=== PATIENT | female | born 1950 | race Hispanic/Latino ===

== ENCOUNTER 2017-03-26 16:01 | Inpatient (IN) | payer MEDICARE, OTHER ==
[2016-04-03 16:50] VITALS: PULSE 92
[2017-03-27] MEDS: Insulin Reg-LOW-Coverage SC SCH ×4 (07:45→22:15)
[2017-03-27 08:20] LABS: INR 1.56 (0.93-1.08)
[2017-03-27 09:48] LABS: INR 1.67 (0.93-1.08); PARTIAL THROMBOPLASTIN TIME 28.4 Seconds (23.7-30.8)
[2017-03-27] MEDS ORDERED: diltiaZEM 240 mg/24 Hours CD Cap PO SCH ×2 (10:00→10:31)
[2017-03-27 10:50] LABS: HEMATOCRIT 32.3 % (36.0-48.0); MEAN CELL VOLUME 93.9 fL (80.0-105.0); MEAN CORPUSCULAR HEMOGLOBIN 30.2 pg (25.0-35.0); MEAN CORPUSCULAR HGB CONC 32.2 g/dl (31.0-37.0); MEAN PLATELET VOLUME 10.2 fl (7.0-11.0); RED CELL DISTRIBUTION WIDTH 17.8 % (11.5-14.5); WHITE BLOOD COUNT 6.1 10^3/ul (4.5-11.0)
[2017-03-27] MEDS: Potassium Chloride 20 mEq ER Tab PO SCH (10:53)
[2017-03-27] MEDS: diltiaZEM 180 mg/24 Hours CD Cap PO SCH (10:57)
[2017-03-27] MEDS ORDERED: Pantoprazole 40 mg EC Tab PO STA (11:06)
--- NOTE | 2017-03-27 11:54 | US ---
HISTORY: Leg pain and swelling. Evaluate for DVT PHYSICIAN(S): Alberto Elise MD. TECHNIQUE: Duplex sonography and color-flow Doppler with graded compression were used to evaluate the deep venous systems of both lower extremities. The exam is limited by body habitus and edema. The tibial veins are not well seen FINDINGS: The visualized deep venous systems of both lower extremities are sonographically normal and compressible. Normal wave forms and augmentation are seen. There is no sonographic evidence for deep venous thrombosis in the visualized segments of both lower extremities. IMPRESSION: No sonographic evidence for deep venous thrombosis in the visualized segments of both lower extremities. Limited study.
--- NOTE | 2017-03-27 12:41 | RAD ---
HISTORY: LEG SWELLING COMPARISON: 12/18/2015 FINDINGS: LUNGS: No active pulmonary disease. PLEURA: No significant pleural effusion identified, no pneumothorax apparent. CARDIOVASCULAR: Moderate cardiomegaly OSSEOUS STRUCTURES: Sternal wires VISUALIZED UPPER ABDOMEN: Normal. OTHER FINDINGS: None. IMPRESSION: No active disease.
--- NOTE | 2017-03-27 13:01 | HP ---
HISTORY OF PRESENT ILLNESS: This 67-year-old female was examined at her bedside. Her case was reviewed with herself in detail and patient was seen earlier today by Dr. Alberto Rose from cardiology and I have reviewed this case with her nurse, Erlinda Rodriguez, in detail as well. The patient presented to the [facility] ER complaining of mild shortness of breath in the setting of a history of aortic valve cardiac repair approximately 4 years ago with history of chronic atrial fibrillation for which she takes Cardizem and Coumadin as an outpatient. The patient also is a type 2 diabetic, who follows with endocrinology through the [facility] in [place], [place] where she also receives her primary care as well. The patient states that approximately 4 years ago, under the recommendation of Dr. Alberto Rose, she was sent for cardiac valve replacement and repair surgery at [facility] and has done well subsequently. She states that on review of her history, she was a former smoker, none since her surgery, a nondrinker, non- IV drug misuser whose family history is significant for atherosclerotic heart disease and phlebitis of the legs. ALLERGIES: She denies any allergies to medication. OUTPATIENT MEDICATIONS: She is unclear as to her outpatient medication, but purportedly takes Cardizem, Coumadin, sotalol, Pravachol, Lasix, potassium, Protonix, metformin, insulin, Lasix and Klonopin. REVIEW OF SYSTEMS: HEAD: There was no headache or seizure. EYES: No change in visual acuity. EARS: No hearing loss. THROAT: No swallowing difficulty. NECK: No stiffness. CARDIAC: She is status post valvular heart repair. Has a history of chronic hypertension. PULMONARY: No cough, no hemoptysis. GASTROINTESTINAL: Admits to GERD. GENITOURINARY: No dysuria. SKIN: Without rash. She has chronic phlebitis. VASCULAR: No claudication. PSYCHOLOGICAL: Anxiety. NEUROLOGIC: No knowledge of stroke. PHYSICAL EXAMINATION: VITAL SIGNS: On the campus monitor, she is in atrial fibrillation. Temperature 98, respirations 18, pulse 74, blood pressure 148/62 with a pulse ox of 98% room air. HEENT: Head is normocephalic, atraumatic. Eyes show no icterus. Ears are clear. Throat is not injected. NECK: Supple. HEART: Irregular S1, S2. LUNGS: Clear. ABDOMEN: Obese. EXTREMITIES: With chronic phlebitic changes. VASCULAR: Legs warm to touch. PSYCHOLOGIC: Alert. NEUROLOGIC: Intact. LABORATORY DATA: White count 6100, hemoglobin 10.4, hematocrit 32.3, MCV 93.9, platelets 285. PT/INR is subtherapeutic at 1.56. Digoxin level low at 0.6. IMPRESSION: A 67-year-old female, morbidly obese with a BMI of 41.8 and comorbidities of valvular heart disease, chronic atrial fibrillation, chronic hypertension, subtherapeutic PT/INR for chronic atrial fibrillation protection, type 2 diabetes mellitus, history of gastroesophageal reflux disease and normochromic normocytic anemia. PLAN: At present is to continue medications as ordered by Dr. Rose including sotalol 80 mg b.i.d., Cardizem-CD 180 p.o. daily, Coumadin 6 mg p.o. daily, regular low dose insulin coverage a.c. meals and at bedtime, Lasix 40 mg IV daily, potassium 20 mEq p.o. daily, Protonix 40 mg p.o. daily. She is ordered to have a 2D echocardiogram, a heart healthy diabetic diet. She will have a comprehensive metabolic panel, repeat troponin. I will order iron, TIBC, ferritin, B12 and folic acid levels and stool for occult blood. The patient has been advised upon her return to her PMD at the outpatient clinic that she attend to have followup with a GI for completeness sake and it is recommended to have a repeat endoscopy and colonoscopy for completeness sake. Once cleared by cardiology, she will be discharged to their care and hopefully will be compliant with the above. Greater than 60 minutes was spent in the care, coordination of care, review of care with this patient, nursing, co-consultants today. Prognosis remains stable at present. Of note, I did review her venous Doppler of the lower extremities and there is no evidence of deep venous thrombosis upon review with Dr. Alberto Elise from interventional radiology. Jazmín Velez MD cc: [id number] TT: 03/27/2017 13:00:35 carmelo GODOY
[2017-03-27 14:08] LABS: ALB/GLOB RATIO 0.9 (1.1-1.8); ALKALINE PHOSPHATASE 87 U/L (38-133); ALT/SGPT 26 U/L (7-56); AST/SGOT 33 U/L (15-39); BILIRUBIN,TOTAL 0.8 mg/dL (0.2-1.3); BLOOD UREA NITROGEN 19 mg/dL (7-21); CALCIUM 9.4 mg/dL (8.4-10.5); CARBON DIOXIDE 29 mmol/L (21-33); CHLORIDE 98 mmol/L (98-107); GFR AFRICAN-AMERICAN > 60; GLUCOSE,RANDOM 99 mg/dL (70-110); POTASSIUM 4.2 mmol/L (3.6-5.0); SODIUM 138 mmol/L (132-148); TOTAL PROTEIN 8.7 g/dL (5.8-8.3); TROPONIN I 0.03 ng/mL
[2017-03-27 14:31] LABS: IRON 44 ug/dL (45-180)
[2017-03-27 14:50] VITALS: BMI 41.7
[2017-03-27] MEDS ORDERED: Pneumococcal 23-Valent Vaccine IM ONE (14:51)
[2017-03-27 18:22] LABS: FOLATE 17.7 ng/mL
--- NOTE | 2017-03-27 20:23 | CP.PCM.PN ---
Subjective - Date & Time of Evaluation Date of Evaluation: 03/27/17 Time of Evaluation: 20:22 - Subjective Subjective: Patient was seen at bedside . Because patient was found to have a 2.1 second pause on monitor. Has no complaints.Denies sob, chest pain, nausea, palpitations, sweating. 67 year old white woman was admitted sob Has PMH of chronid atrial fibrillation, type II DM, ex smoker, obesity,GERD, normocytic normochromic anemia. Objective - Vital Signs/Intake and Output Vital Signs (last 24 hours): Temp Pulse Resp BP Pulse Ox 97.9 F 67 18 139/58 L 98 03/27/17 18:00 03/27/17 18:33 03/27/17 18:00 03/27/17 18:33 03/27/17 14:20 - Medications Medications: Current Medications Diltiazem HCl (Cardizem Cd) 180 mg PO DAILY [facility] Last Admin: 03/27/17 10:57 Dose: 180 mg Furosemide (Lasix) 40 mg IVP DAILY [facility] Last Admin: 03/27/17 10:53 Dose: 40 mg Insulin Human Regular (Humulin R Low) 0 units SC ACHS [facility] Last Admin: 03/27/17 19:01 Dose: Not Given Pantoprazole Sodium (Protonix Ec Tab) 40 mg PO 0630 [facility] Potassium Chloride (K-Dur 20 Meq Er Tab) 20 meq PO DAILY [facility] Last Admin: 03/27/17 10:53 Dose: 20 meq Sotalol HCl (Betapace) 80 mg PO BID [facility] Last Admin: 03/27/17 18:33 Dose: 80 mg Warfarin Sodium (Coumadin) 6 mg PO 1800 [facility] Last Admin: 03/27/17 18:38 Dose: 6 mg - Labs Labs: PT 16.9 Seconds (9.9-11.8) H 03/27/17 07:00 INR 1.56 (0.93-1.08) H 03/27/17 07:00 APTT 28.4 Seconds (23.7-30.8) 03/26/17 18:40 - Constitutional Appears: Well, No Acute Distress - Head Exam Head Exam: ATRAUMATIC, NORMAL INSPECTION, NORMOCEPHALIC - Eye Exam Eye Exam: Normal appearance - ENT Exam ENT Exam: Normal External Ear Exam - Neck Exam Neck Exam: Normal Inspection - Respiratory Exam Respiratory Exam: NORMAL BREATHING PATTERN - Cardiovascular Exam Cardiovascular Exam: absent: JVD - GI/Abdominal Exam GI & Abdominal Exam: absent: Distended - Rectal Exam Rectal Exam: Deferred - Extremities Exam Extremities Exam: Normal Inspection - Back Exam Back Exam: NORMAL INSPECTION - Neurological Exam Neurological Exam: Alert, Oriented x3 - Psychiatric Exam Psychiatric exam: Normal Affect, Normal Mood - Skin Skin Exam: Normal Color Assessment and Plan - Assessment and Plan (Free Text) Assessment: A/P:Sinus pause. On Sotalol, cardizem. Dyspnea. Atrial fibrillation. Obesity. DM II. GERD. Anemia. Observation. Hold Sotalol until reordered by .
--- NOTE | 2017-03-27 22:41 | CARD ---
APPROVED REPORT EKG Measurement Heart [id number] <Conclusion> Atrial fibrillation Rightward axis Left bundle branch block Abnormal ECG
[2017-03-28] MEDS: Pantoprazole 40 mg EC Tab PO SCH (05:53)
[2017-03-28] MEDS: Insulin Reg-LOW-Coverage SC SCH ×4 (08:01→22:09)
[2017-03-28 08:55] LABS: HEMATOCRIT 33.3 % (36.0-48.0)
--- NOTE | 2017-03-28 09:08 | PN ---
DATE: 03/28/2017 SUBJECTIVE: The patient's breathing is much improved. Palpitations are controlled. PHYSICAL EXAMINATION: VITAL SIGNS: Blood pressure is144/60, the heart rate is in the 60s. NECK: Negative JVD. LUNGS: Without rales. HEART: Reveals S1, S2 with a II/ systolic ejection murmur. EXTREMITIES: Without edema. LABORATORIES: The INR yesterday was 1.56. Chemistries: Troponin is 0.03. The proBNP was 953. IMPRESSION: 1. Acute systolic congestive heart failure. 2. Status post aortic valve replacement. 3. Paroxysmal atrial fibrillation. 4. Dyspnea which is now improved, pedal edema which is improved. PLAN: Given these findings, we will continue on warfarin to an INR of 2.5. We will continue her musa ly Lasix. Echocardiogram is pending. We will review once it is done. Alberto Rose MD cc: [id number] TT: 03/28/2017 09:07:40 Confirmation # [id number] Dictation # [id number] tn
[2017-03-28] MEDS: diltiaZEM 180 mg/24 Hours CD Cap PO SCH (09:40)
[2017-03-28] MEDS: Potassium Chloride 20 mEq ER Tab PO SCH (09:42)
--- NOTE | 2017-03-28 11:32 | CARD ---
APPROVED REPORT EXAM: Two-dimensional and M-mode echocardiogram with Doppler and color Doppler. 2D DIMENSIONS Left Atrium (2D)4.8 (1.6-4.0cm)IVSd1.3 (0.7-1.1cm) LVDd4.5 (3.9-5.9cm)LVOT Diameter2.1 (1.8-2.4cm) PWd1.4 (0.7-1.1cm)LVDs3.0 (2.5-4.0cm) FS (%) 32.3 %LVEF (%)60.7 (>50%) M-Mode DIMENSIONS Left Atrium (MM)5.20 (2.5-4.0cm)Aortic Root3.20 (2.2-3.7cm) Aortic Cusp Exc.1.00 (1.5-2.0cm) Aortic Valve AoV Peak Nbeqpyha019.0cm/sAoV VTI83.7cmAO Peak GR.56mmHg LVOT Peak Meocakom94.5cm/sLVOT VTI16.80cmAO Mean GR.30mmHg ADVID (VMAX)0.11gv1XQH (VTI)0.52ej1MM P 1/2 Ykpt064ey Mitral Valve MV E Mtphxdgm884.0cm/s TDI Lateral E' Peak V10.10cm/sMedial E' Peak V5.15cm/sE/Lateral E'10.9 E/Medial E'21.4 Tricuspid Valve TR Peak Zkwwhlev795ep/sRAP JFOLLYTT61thRsER Peak Gr.72mmHg TJNX92jeBr LEFT VENTRICLE The left ventricle is normal size. There is mild concentric left ventricular hypertrophy. The left ventricular function is normal. The left ventricular ejection fraction is within the normal range. There is normal LV segmental wall motion. RIGHT VENTRICLE The right ventricle is normal size. There is normal right ventricular wall thickness. Systolic function is mildly reduced. ATRIA The left atrium is moderately dilated. The right atrium is severely dilated. AORTIC VALVE The aortic valve is severely calcified. There is mild aortic regurgitation. There is severe valvular aortic stenosis. MITRAL VALVE The mitral valve is moderately thickened. Mitral regurgitation is mild to moderate. TRICUSPID VALVE There is severe tricuspid regurgitation. There is severe pulmonary hypertension. PULMONIC VALVE There is mild pulmonic valvular regurgitation. GREAT VESSELS The aortic root is normal in size. The IVC is dilated. The IVC collapses <50% with inspiration. PERICARDIAL EFFUSION There is no pericardial effusion. <Conclusion> The left ventricle is normal size. There is mild concentric left ventricular hypertrophy. The left ventricular function is normal. The left ventricular ejection fraction is within the normal range. There is normal LV segmental wall motion. The aortic valve is severely calcified. There is severe valvular aortic stenosis. There is mild aortic regurgitation. Mitral regurgitation is mild to moderate. There is severe tricuspid regurgitation. There is severe pulmonary hypertension.
--- NOTE | 2017-03-28 13:05 | CARD ---
APPROVED REPORT EKG Measurement Heart [id number] <Conclusion> Atrial fibrillation Left axis deviation Left bundle branch block Abnormal ECG
--- NOTE | 2017-03-28 21:32 | PN ---
DATE: 03/28/2017 SUBJECTIVE: This 67-year-old female was examined at her bedside. Her case was reviewed in detail with herself and her nurse, Yessica Foley, registered nurse. The patient remains in an atrial fibrillation rhythm. She denies any chest pain, shortness of breath, cough, hemoptysis or dyspepsia. She was seen earlier by Dr. Rose. She stated she is awaiting 2D echocardiogram and is able to ambulate to the bathroom without any shortness of breath with the adjusted diuretic dosing. PHYSICAL EXAMINATION: GENERAL: She has been in atrial fibrillation rhythm on the secured entrance monitor . VITAL SIGNS: Her temperature is 97.9, her respirations are 19, pulse 64, blood pressure 145/74 with a pulse ox of 98% on room air. HEAD: Normocephalic, atraumatic. EYES: Show no icterus. EARS: Clear. THROAT: Noninjected. NECK: Supple. HEART: Irregular S1, S2. LUNGS: Clear. ABDOMEN: Obese. EXTREMITIES: No edema. SKIN: Without rash. NEUROLOGIC: Intact. PSYCHOLOGICAL: Anxious. VASCULAR: Legs warm to touch. LABORATORY DATA: Hemoglobin 10.7, hematocrit 33.3. PT/INR subtherapeutic 1.56 , sodium 138, K 4.2, chloride 98, bicarbonate 29, BUN 19, creatinine 0.6. Random blood sugar 99. Iron level low 44, TIBC 399, percent saturation low 11. Ferritin 24.3. B12 277 normal. Folic acid 17.7 normal. Chest x-ray showed no active pulmonary disease. Venous Doppler of both lower extremities was unremarkable. EKG consistent with atrial fibrillation with nonspecific ST-T wave changes. IMPRESSION: A 67-year-old female with valvular heart repair, congestive heart failure, chronic atrial fibrillation with a subtherapeutic PT/INR in a patient with noncompliance with medication as an outpatient, chronic anxiety, type 2 diabetes mellitus, probable iron deficiency anemia, history of peptic ulcer disease with gastroesophageal reflux disease. PLAN: Continue Betapace 80 mg p.o. b.i.d., diltiazem 180 mg p.o. daily, Coumadin increased to 10 mg p.o. daily until PT/INR is therapeutic at which time she will be returned to her maintenance dose of 6 mg p.o. daily. She continues on regular low dose Humulin insulin coverage a.c. meals and at bedtime, Lasix 40 mg IV daily, potassium 20 mEq p.o. daily, Protonix 40 mg p.o. daily and Klonopin 0.5 mg p.o. t.i.d. p.r.n. anxiety. She continues on a heart healthy diabetic diet. She is ordered for physical therapy for ambulation safety. She is awaiting a 2D echocardiogram and has been clearly advised of her iron deficiency anemia and the need for outpatient followup with her PMD and gastroenterology for endoscopy and colonoscopy when cleared by Dr. Rose from cardiology. All of this was discussed in detail with the patient and her nurse at the bedside and greater than 50 minutes was spent in the care, coordination of care , review of care and discussion of care with this patient and her nurse and co- consultants today. Jazmín Velez MD cc: [id number] TT: 03/28/2017 21:32:26 Confirmation # [id number] Dictation # [id number] jn MTDD
[2017-03-29] MEDS: Pantoprazole 40 mg EC Tab PO SCH (06:33)
[2017-03-29 07:59] LABS: INR 1.52 (0.93-1.08)
[2017-03-29] MEDS: Insulin Reg-LOW-Coverage SC SCH ×4 (08:05→21:37)
[2017-03-29] MEDS: Potassium Chloride 20 mEq ER Tab PO SCH (10:06)
[2017-03-29] MEDS: diltiaZEM 180 mg/24 Hours CD Cap PO SCH (10:06)
--- NOTE | 2017-03-29 13:17 | PN ---
DATE: 03/29/2017 This 67-year-old female was examined at her bedside. Her case was reviewed in detail with herself and nurse, Kevin Vidal. The patient has not been seen by Dr. Rose from cardiology today, and her 2D echocardiogram is pending. She denies any chest pain, shortness of breath, palpitations, or fevers, and is in an atrial fibrillation rhythm on the bus monitor. PHYSICAL EXAMINATION: VITAL SIGNS: Temperature is 97.6, respirations 20, pulse 71, and blood pressure 134/80 with a pulse ox of 94% on room air. HEAD: Normocephalic, atraumatic. EYES: No icterus. EARS: Clear. THROAT: Noninjected. NECK: Supple. HEART: Iregular S1, S2. No pathological rubs, murmurs, or gallops. LUNGS: Clear. ABDOMEN: Soft. EXTREMITIES: Show legs are both equal in size. No edema with signs of varicose veins bilaterally. VASCULAR: Legs are warm to touch. PSYCHOLOGICAL: Alert. NEUROLOGICAL: Grossly intact. LABORATORY DATA: Hemoglobin 10.7, hematocrit 33.3, PT/INR subtherapeutic at 1.52. Sodium 138, K 4.2, chloride 98, bicarb 29, BUN 19, creatinine 0.6, random blood sugar 99. Iron low 44, TIBC 399, percent saturation low 11. Ferritin 24.3. Vitamin B12, 277 normal. Folic acid 17.7 normal. IMPRESSION: A 67-year-old female with history of aortic valve replacement, mitral valve repair, chronic hypertension, morbid obesity, chronic atrial fibrillation with a subtherapeutic PT/INR. Also with type 2 diabetes mellitus, chronic anxiety neurosis, degenerative arthritis, and peptic ulcer disease with gastroesophageal reflux disease, now with iron deficiency anemia. PLAN: Plan at present, I discussed in great detail with the patient at her bedside, is to continue Betapace 80 mg p.o. b.i.d., Cardizem CD 180 mg p.o. daily. Her Coumadin has been increased to 10 mg p.o. daily while checking PT/ INR daily and aiming for an INR level of 2-3. She continues on regular low- dose insulin coverage a.c. meals and at bedtime. She is receiving Lasix 40 mg IV daily, potassium chloride 20 mEq p.o. daily, and Protonix 40 mg p.o. daily. The patient continues on a heart healthy diabetic diet. She is ordered to have physical therapy for ambulation safety. She will have a repeat PT/INR in the a.m., as well as a basic metabolic panel in the a.m. The patient has been clearly advised that she will need close outpatient followup with her physicians at the [facility] regarding her iron deficiency anemia and will need a GI workup including endoscopy and colonoscopy when cleared by cardiology to do so. I have also advised the patient to follow up with vascular surgery as an outpatient regarding her chronic varicose veins, history of edema secondary to chronic phlebitis, which appears markedly improved with diuresis of her pedal edema. She is clearly aware that these are recommendations that are her responsibility to follow, and hopefully, she will be compliant with them and the management of them as well. Greater than 60 minutes was spent in the care, coordination of care, review of care, and discussion of care with this patient at her bedside, and her co-consultants and nursing staff today. Jazmín Velez MD cc: [id number] TT: 03/29/2017 13:16:39 Confirmation # [id number] Dictation # [id number] jn MTDD
[2017-03-30] MEDS: Pantoprazole 40 mg EC Tab PO SCH (06:19)
[2017-03-30 06:39] LABS: INR 1.94 (0.93-1.08)
[2017-03-30 07:03] LABS: BLOOD UREA NITROGEN 21 mg/dL (7-21); CARBON DIOXIDE 31 mmol/L (21-33); CHLORIDE 98 mmol/L (98-107); GFR AFRICAN-AMERICAN > 60; GLUCOSE,RANDOM 123 mg/dL (70-110); POTASSIUM 4.1 mmol/L (3.6-5.0); SODIUM 137 mmol/L (132-148)
[2017-03-30] MEDS: Insulin Reg-LOW-Coverage SC SCH ×4 (07:54→22:00)
[2017-03-30] MEDS: diltiaZEM 180 mg/24 Hours CD Cap PO SCH (09:41)
[2017-03-30] MEDS: Potassium Chloride 20 mEq ER Tab PO SCH (09:42)
--- NOTE | 2017-03-30 12:08 | PN ---
DATE: 03/30/2017 This 67-year-old female was examined at her bedside. Her case was reviewed with herself, her nurse, and nurse practitioner. She is awaiting followup by Dr. Rose from cardiology and has remained chest pain free, and has no shortness of breath on her adjusted medications. She denies fever or chills and is in an atrial fibrillation rhythm on the florist manager. PHYSICAL EXAMINATION: VITAL SIGNS: Temperature is 98.6, pulse 61, respirations 20, and blood pressure 131/58 with a pulse ox of 96% on room air. GENERAL: She is ambulating independently. HEAD: Normocephalic, atraumatic. EYES: No icterus. EARS: Clear. THROAT: Noninjected. NECK: Supple. HEART: Irregular S1, S2. LUNGS: Clear. ABDOMEN: Obese. EXTREMITIES: With chronic phlebitis changes. No edema. VASCULAR: Feet warm to touch. PSYCHOLOGICAL: Alert and oriented x 3. NEUROLOGIC: Intact. LABORATORY DATA: Hemoglobin 10.7, hematocrit 33.3, INR 1.94. Sodium 137, K 4.1 , chloride 98, bicarb 31, BUN 21, creatinine 0.7. Random blood sugar was 123, iron level 44, TIBC 399, percent saturation 11, ferritin 24.3, B12 of 277, folic acid 17.7. All liver function testing was normal including bilirubin 0.8 , AST 33, ALT 26, alk phos 87. IMPRESSION: A 67-year-old female status post aortic valve replacement and mitral valve repair with comorbidities of congestive heart failure, chronic atrial fibrillation, admitted with a subtherapeutic PT/INR, history of chronic type 2 diabetes mellitus, obesity, degenerative arthritis, probable iron deficiency anemia and chronic phlebitis of both lower extremities. PLAN: At present is to await followup from Dr. Rose regarding his interpretation of the 2D echocardiogram and adjustment of any medication, and recommendation for any further workup if needed. At present, she will continue on sotalol 80 mg b.i.d., Cardizem CD 180 mg p.o. daily, Coumadin 10 mg p.o. today, PT/INR in the a.m., regular low-dose insulin coverage a.c. meals and at bedtime, Lasix 40 mg IV daily, potassium 20 mEq p.o. daily, Protonix 40 mg p.o. daily. Heart-healthy diabetic diet. She is receiving physical therapy for ambulation safety. Ultimate plan will be for discharge to home and follow up with her PMD, vascular surgery, gastroenterology, and cardiology, and the patient is aware of all the above recommendations, and greater than 50 minutes was spent in the care, coordination of care, review of care, and discussion of care with this patient today, as well as her nurse, her nurse practitioner, and business case analyst. Ultimate plan will be for discharge when cleared by cardiology. Jazmín Velez MD cc: [id number] TT: 03/30/2017 12:05:34 Confirmation # [id number] Dictation # [id number] jn MTDD
--- NOTE | 2017-03-30 14:29 | PN ---
DATE: 03/30/2017 The patient denies any dizziness. She does report palpitation. PHYSICAL EXAMINATION: VITAL SIGNS: Blood pressure 167/75, heart rate 63, temperature 98.3, respirations 20. HEENT: Normocephalic. NECK: No JVD. CHEST: Clear. HEART: S1, S2 irregular. Grade II/ ejection systolic murmur over left sternal border. ABDOMEN: Soft. EXTREMITIES: 2+ pitting edema. LABORATORIES: Today's INR is 1.95. Today's SMA-7 is within normal limits except for glucose of 123. EKG on 03/27 revealed atrial fibrillation at rate of 77, left bundle branch block and rightward axis . I did review the echocardiograph study that was performed 2 days ago and it did reveal diminished opening of the aortic valve with significant calcification with the severity of aortic stenosis rangi ng from moderate to severe. There was also noted severe pulmonary hypertension with mildly reduced e jection fraction of the right ventricle. Lower extremity ultrasound was a limited study and no sonog raphic evidence of DVT in either lower extremities. ASSESSMENT: 1. Status post prosthetic aortic valve replacement 4 years ago. Consider aortic stenosis. 2. Cor pulmonale and right-sided heart failure. 3. Chronic atrial fibrillation. RECOMMENDATIONS: Continue current Cardizem-CD at 180 mg once a day, Betapace at 80 mg twice a day, L asix at 40 mg intravenously daily, Coumadin 10 mg to be administered today. Alfredo Rosario MD cc: [id number] TT: 03/30/2017 14:29:17 Confirmation # [id number] Dictation # [id number]
[2017-03-31] MEDS: Pantoprazole 40 mg EC Tab PO SCH (05:29)
[2017-03-31 06:15] VITALS: RESP 20; O2SAT 95
[2017-03-31 07:08] LABS: INR 2.71 (0.93-1.08)
[2017-03-31] MEDS: Insulin Reg-LOW-Coverage SC SCH ×3 (07:54→17:12)
[2017-03-31] MEDS: Potassium Chloride 20 mEq ER Tab PO SCH (08:59)
[2017-03-31] MEDS: diltiaZEM 180 mg/24 Hours CD Cap PO SCH (09:00)
--- NOTE | 2017-03-31 11:00 | PN ---
DATE: 03/31/2017 The patient's breathing is much improved. PHYSICAL EXAMINATION: VITAL SIGNS: Blood pressure is 139/80. The heart rate is in the 60s, atrial fibrillation. NECK: Negative JVD. LUNGS: Without rales. HEART: Reveals S1, S2 with a II/ systolic ejection murmur. EXTREMITIES: Without edema. LABORATORIES: INR is 2.71. The hemoglobin was not done today. Echocardiogram reveals a peak aortic valve gradient of 56 mmHg consistent with critical aortic stenos is with a prosthetic valve which is a [employer] bovine valve. IMPRESSION: 1. Congestive heart failure. 2. 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 3. Atrial fibrillation. 4. Diabetes mellitus. PLAN: Given these findings, the patient can be discharged today from a cardiac perspective. I have discussed with her about the options of TAVR of the prosthetic aortic valve. The patient is a greeable. Given the patient is fully anticoagulated, the patient can be discharged today. We will e valuate the patient next week in my office where we will prepare her for cardiac catheterization and possible TAVR and adjusting her anticoagulation. Alberto Rose MD cc: [id number] TT: 03/31/2017 10:59:48 Confirmation # [id number] Dictation # [id number] tn
[2017-03-31 12:41] VITALS: TEMP 98.4
[2017-03-31 17:35] VITALS: BP 149/73; PULSE 98
--- NOTE | 2017-04-01 11:32 | DS ---
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 DISPOSITION: Home. FOLLOWUP: With Dr. Rose as per his recommendation 04/08/2017, in his office. Follow up with her PMD in the [facility] at [address] [place] [address], within 48 hours. The patient was advised to follow up with a vascular surgeon on referral from her PMD regarding her issues of chronic phlebitis and the patient was also advised to follow up with gastroenterology when cleared by cardiology for evaluation of probable iron deficiency anemia with endoscopy and colonoscopy. DISCHARGE MEDICATIONS: Sotalol 80 mg p.o. b.i.d., Cardizem-CD 180 mg p.o. daily , Coumadin 6 mg p.o. daily which will begin 04/01/2017, Lasix 40 mg p.o. daily, potassium chloride 20 mEq p.o. daily, Protonix 40 mg p.o. daily, metformin 1000 mg p.o. b.i.d., Pravachol 20 mg p.o. daily. SUMMARY: This 67-year-old female was admitted with shortness of breath and a history of aortic valve replacement and mitral valve repair approximately 4 years ago under the direction of Dr. Alberto Rose and surgeon, Dr. Gonzalez, at the [facility]. The patient was seen in consultation by Dr. Rose, cardiology, here at [facility] and had cardiac enzymes that were negative for myocardial infarction and the patient was treated for clinical congestive heart failure. She had a 2D echocardiogram performed which revealed recurrent aortic stenosis in her prosthetic heart valve as well as a dilated left atrium, all of which was discussed by Dr. Rose with the patient. He advised the patient that she will need to be seen in his office where he will schedule a repeat cardiac cath and evaluation for possible TAVR of the aortic valve, At the time of discharge, the patient's vital signs were temperature 98.4, respirations 20, pulse 68, blood pressure 113/57, pulse ox 95 % on room air. The patient was independent in ambulation. Her labs showed white count 6100, hemoglobin 10.7, hematocrit 33.3, platelets 285,000. PT/INR 2.71. Sodium 137, K 4.4, chloride 98, bicarb 31, BUN 21, creatinine 0.7, random blood sugar was 111, magnesium level was 2.1, normal. The patient is discharged to home fully aware of her responsibility to follow up with Dr. Rose for scheduling of repeat cardiac cath and discussion of repair of the stenotic prosthetic aortic valve. She is aware of all her medications, comorbidities, need for consultations with vascular surgery and gastroenterology consultants and her responsibility to follow up with her PMD within 48 hours of discharge. She needs outpatient monitoring of her INR on Coumadin The patient was clear in her understanding of all of the above. Greater than 50 minutes was spent in the care, coordination of care, review of care and discussion of discharge management with the patient and her nurse, Erlinda Roberts, registered nurse, with this patient at her bedside and hopefully, the patient will be compliant with recommendations as outlined above. Jazmín Velez MD cc: [id number] TT: 04/01/2017 11:32:13 tn MTDD
== END 2017-03-31 19:43 | disposition home or self-care (01) | DRG 314 ==
LOC: ED 16:01 → ERH 23:30 → 2RNO 03-27 16:08
PROVIDERS: ADMIT Internal Medicine; ATTEND Internal Medicine
DX: T82.857A Stenosis of other cardiac prosthetic devices, implants and grafts, initial encounter (principal); I50.21 Acute systolic (congestive) heart failure; I27.81 Cor pulmonale (chronic); Z68.41 Body mass index [BMI] 40.0-44.9, adult; I48.0 Paroxysmal atrial fibrillation; E66.01 Morbid (severe) obesity due to excess calories; I35.0 Nonrheumatic aortic (valve) stenosis; I11.0 Hypertensive heart disease with heart failure; E11.9 Type 2 diabetes mellitus without complications; D50.9 Iron deficiency anemia, unspecified; K21.9 Gastro-esophageal reflux disease without esophagitis; I48.2 Chronic atrial fibrillation; M19.90 Unspecified osteoarthritis, unspecified site; F41.1 Generalized anxiety disorder; K27.9 Peptic ulcer, site unspecified, unspecified as acute or chronic, without hemorrhage or perforation; Y83.8 Other surgical procedures as the cause of abnormal reaction of the patient, or of later complication, without mention of misadventure at the time of the procedure; Z91.14 Patient's other noncompliance with medication regimen; Z87.891 Personal history of nicotine dependence; Z79.01 Long term (current) use of anticoagulants

== ENCOUNTER 2017-05-05 06:49 | Day surgery (SDC) | payer MEDICARE ==
[2016-04-03 16:50] VITALS: PULSE 92
[2017-05-01 09:08] VITALS: BMI 42.1
[2017-05-05 07:03] LABS: ADD MANUAL DIFF? NO
[2017-05-05] MEDS ORDERED: Iodixanol 320 MG/ML 200 ML BOTTLE IV ONE (07:13)
[2017-05-05] MEDS ORDERED: Lidocaine 2% Inj (20ml) ONE (07:13)
[2017-05-05] MEDS ORDERED: Iohexol 350mgl/ml 50 ML ONE (07:13)
[2017-05-05] MEDS ORDERED: Iodixanol 320 MG/ML 100 ML BOTTLE IV ONE (07:13)
[2017-05-05] MEDS ORDERED: Phenylephrine 10 mg/ml Inj ONE (07:13)
[2017-05-05] MEDS ORDERED: Heparin 2,000 ML IV ONE (07:14)
[2017-05-05] MEDS ORDERED: Nitroglycerin 50mg in D5W 50 MG/250 ML BOTTLE IV ONE (07:14)
[2017-05-05 07:20] LABS: BASO # 0.04 K/mm3 (0.0-2.0); BASO % 0.7 % (0.0-3.0); EOS # 0.2 (0.0-0.7); EOS % 3.5 % (1.5-5.0); GRAN # 3.44 (1.4-6.5); GRAN % 60.8 % (50.0-68.0); HEMATOCRIT 30.7 % (36.0-48.0); LYMPH # 1.5 (1.2-3.4); LYMPH % 26.9 % (22.0-35.0); MEAN CELL VOLUME 93.6 fL (80.0-105.0); MEAN CORPUSCULAR HEMOGLOBIN 29.6 pg (25.0-35.0); MEAN CORPUSCULAR HGB CONC 31.6 g/dl (31.0-37.0); MEAN PLATELET VOLUME 9.5 fl (7.0-11.0); MONO # 0.5 (0.1-0.6); MONO % 8.1 % (1.0-6.0); PLATELET COUNT 273 10^3/uL (120.0-450.0); RED CELL DISTRIBUTION WIDTH 17.4 % (11.5-14.5); WHITE BLOOD COUNT 5.7 10^3/ul (4.5-11.0)
[2017-05-05 07:32] LABS: INR 1.31 (0.93-1.08)
[2017-05-05 07:35] LABS: BLOOD UREA NITROGEN 27 mg/dL (7-21); CALCIUM 9.4 mg/dL (8.4-10.5); CARBON DIOXIDE 27 mmol/L (21-33); CHLORIDE 101 mmol/L (98-107); GFR AFRICAN-AMERICAN > 60; GLUCOSE,RANDOM 118 mg/dL (70-110); POTASSIUM 4.4 mmol/L (3.6-5.0); SODIUM 138 mmol/L (132-148)
[2017-05-05] MEDS ORDERED: Midazolam 2 MG/2 ML VIAL ONE ×2 (07:54→08:14)
[2017-05-05] MEDS ORDERED: Sodium Chloride 0.45% 1,000 ML IV SCH (09:15)
[2017-05-05 09:49] VITALS: TEMP 97.5
[2017-05-05 13:20] VITALS: RESP 20
[2017-05-05 15:12] VITALS: O2SAT 95
[2017-05-05 16:21] VITALS: BP 130/70; PULSE 56
== END 2017-05-05 16:15 | disposition home or self-care (01) ==
LOC: CATH 06:49
PROVIDERS: ATTEND Internal Medicine Cardiovascular Disease
DX: I27.2 Other secondary pulmonary hypertension (principal); Z95.2 Presence of prosthetic heart valve
CPT/HCPCS: 36415; 80048; 85025; 85610; 85730; 86850; 86900; 93460; 93567; 99152; 99153; C1713; C1769 ×2; C1894; C2629; J1644; J2250; J3010; J7030 ×2; Q9967

== ENCOUNTER 2017-08-04 08:22 | Emergency (ER) | payer MEDICARE, OTHER ==
[2017-08-04 08:23] VITALS: PULSE 92; BMI 42.1
[2017-08-04 08:40] VITALS: TEMP 97.6
--- NOTE | 2017-08-04 09:08 | ED PDOC ---
Arrival/HPI - General Historian: Patient - History of Present Illness Time/Duration: Other (12 hours) Symptom Onset: Gradual Symptom Course: Improving Activities at Onset: Light Context: Home <HAILEE LOONEY - Last Filed: 08/04/17 09:38> <Prem Driver - Last Filed: 08/04/17 09:50> - General Chief Complaint: Allergic Reaction - History of Present Illness Narrative History of Present Illness (Text): 08/04/17 09:09 Mrs. Zamora is a 67 year old female with a past medical history significant for chronic atrial fibrillation, hypertension and aortic valve replacement s/p 4 years ago presents to emergency department with a chief complaint of tongue swelling. She reports that she received an iron infusion yesterday at approximately 1500 for the first time at Dr. Cyr's office. A few hours later, the patient noticed that the right side of her tongue was swollen. Since that time, patient notes significant improvement in the swelling without medical intervention. She called Dr. Cyr to report this problem and was told to be seen in the ER for evaluation. Patient denies any allergies to any medications to her knowledge. She endorses mild sore throat but denies fever, chills, headache, rhinorrhea, changes in her vision, chest pain, palpitations, shortness of breath, cough, abdominal pain, N/V, diarrhea, numbness/tingling/ weakness of any extremities, any new rashes, or any facial swelling. (HAILEE LOONEY) Past Medical History - Provider Review Nursing Documentation Reviewed: Yes - Infectious Disease Hx of Infectious Diseases: None - Tetanus Immunization Tetanus Immunization: Unknown - Cardiac Hx Hypertension: Yes Hx Pacemaker: No Hx Peripheral Edema: Yes - Pulmonary Hx Respiratory Disorders: No - Neurological Hx Paralysis: No - HEENT Hx HEENT Disorder: Yes (WEARS RX GLASSES,LEFT EYE SX CATARACT SX) Hx Cataracts: Yes (L EYE SURGERY) - Renal Hx Renal Disorder: No - Endocrine/Metabolic Hx Endocrine Disorders: Yes Hx Diabetes Mellitus Type 2: Yes - Hematological/Oncological Hx Blood Transfusions: No - Integumentary Hx Dermatological Disorder: No (BILATERAL LEG LYMPEDEMA) Other/Comment: multiple skin discolorations ble dry itchy skin to r knee - Musculoskeletal/Rheumatological Hx Musculoskeletal Disorders: Yes (ROTATOR CUFF TEARsx 2003) - Gastrointestinal Hx Gastrointestinal Disorders: No - Genitourinary/Gynecological Hx Genitourinary Disorders: No - Psychiatric Hx Emotional Abuse: No Hx Physical Abuse: No Hx Substance Use: No - Surgical History Hx Valve Replacement: Yes (x2) - Anesthesia Hx Anesthesia Reactions: No Hx Malignant Hyperthermia: No - Suicidal Assessment Feels Threatened In Home Enviroment: No <LOONEYHAILEE - Last Filed: 08/04/17 09:38> Family/Social History - Physician Review Nursing Documentation Reviewed: Yes Family/Social History: Unknown Family HX Smoking Status: Former Smoker Hx Alcohol Use: No Hx Substance Use: No Hx Substance Use Treatment: No <HAILEE LOONEY - Last Filed: 08/04/17 09:38> Allergies/Home Meds <HAILEE LOONEY - Last Filed: 08/04/17 09:38> <Prem Driver - Last Filed: 08/04/17 09:50> Allergies/Adverse Reactions: Allergies No Known Allergies Allergy (Verified 04/03/16 17:00) Home Medications: Home Meds Medication Instructions Recorded Confirmed Furosemide [Lasix] 40 mg PO DAILY 07/21/13 08/04/17 Warfarin [Coumadin] 6 mg PO DAILY 07/21/13 08/04/17 [id number] CD [Cardizem CD] 300 mg PO DAILY 07/21/13 08/04/17 Clonazepam [Klonopin] 0.5 mg PO PRN PRN 04/03/16 08/04/17 MetFORMIN [glucoPHAGE] 1,000 mg PO BID 04/03/16 08/04/17 Pravastatin Sodium 20 mg PO DAILY 04/03/16 08/04/17 Pantoprazole Sodium [Protonix] 40 mg PO DAILY 03/27/17 08/04/17 Potassium Chloride [K-Dur 20 mEq 20 meq PO DAILY 03/27/17 08/04/17 ER Tab] Aspirin [Ecotrin] 81 mg PO DAILY 05/01/17 08/04/17 Magnesium [Magnesium] 0 mg PO DAILY 08/04/17 08/04/17 Metoprolol Tartrate [Lopressor] 0 mg PO DAILY 08/04/17 Review of Systems - Physician Review All systems were reviewed & negative as marked: Yes - Review of Systems Constitutional: Normal Eyes: Normal ENT: Sore Throat, Other (tongue swelling). absent: Tinnitus, TMJ Pain, Rhinorrhea, Epistaxis, Sinus Congestion Respiratory: Normal. absent: SOB, Cough Cardiovascular: Normal. absent: Chest Pain, Palpitations Gastrointestinal: Normal. absent: Abdominal Pain, Diarrhea, Nausea, Vomiting Genitourinary Female: absent: Dysuria Musculoskeletal: absent: Joint Swelling Skin: absent: Rash, Pruritis Neurological: absent: Headache, Dizziness, Focal Weakness, Facial Droop <HAILEE LOONEY - Last Filed: 08/04/17 09:38> Physical Exam Vital Signs Reviewed: Yes Temperature: Afebrile Blood Pressure: Normal Pulse: Regular Respiratory Rate: Normal Appearance: Positive for: Well-Appearing, Non-Toxic, Comfortable Pain Distress: None Mental Status: Positive for: Alert and Oriented X 3 - Systems Exam Head: Present: Atraumatic, Normocephalic Pupils: Present: PERRL Conjunctiva: Present: Normal Mouth: Present: Moist Mucous Membranes, Normal Lips, Normal Tounge. No: Dry, Drooling Pharnyx: Present: Normal. No: ERYTHEMA, EXUDATE, TONSILS ENLARGED Nose (External): Present: Atraumatic Nose (Internal): Present: Normal Inspection Neck: Present: Normal Range of Motion, Trachea Midline. No: Lymphadenopathy Respiratory/Chest: Present: Clear to Auscultation, Good Air Exchange. No: Respiratory Distress, Accessory Muscle Use, Wheezes, Rales, Rhonchi, Tachypneic Cardiovascular: Present: Normal S1, S2, Irregular Rhythm. No: Regular Rate and Rhythm Abdomen: Present: Normal Bowel Sounds. No: Tenderness, Distention Upper Extremity: Present: Normal Inspection, NORMAL PULSES, Capillary Refill < 2s. No: Cyanosis, Edema Lower Extremity: Present: Edema (3+ pitting edema bilaterally L>R) Neurological: Present: GCS=15, CN II-XII Intact, Speech Normal Skin: Present: Warm, Dry, Normal Color. No: Rashes Psychiatric: Present: Alert, Oriented x 3, Normal Insight, Normal Concentration <HAILEE LOONEY - Last Filed: 08/04/17 09:38> Vital Signs Temp Pulse Resp BP Pulse Ox 08/04/17 08:35 97.6 F 75 17 145/49 L 97 Medical Decision Making <HAILEE LOONEY - Last Filed: 08/04/17 09:38> <Prem Driver - Last Filed: 08/04/17 09:50> ED Course and Treatment: 08/04/17 09:28 Impression: 67 year old female with a past medical history of chronic atrial fibrillation, hypertension and s/p aortic valve repair 4 years ago presented with tongue swelling 12 hours ago that has since resolved Differential Diagnosis included but are not limited to: Acute allergic glossitis Plan: -Currently no glossitis -Patient to be discharged home with instructions to discuss this with Dr. Cyr at her next visit -- Reassess and disposition (HAILEE LOONEY) 08/04/17 09:20 Patient Seen With Resident: In agreement with resident note which contains more details about the patient. Patient was seen and evaluated with resident. Came up with plan and treatment together. 08/04/17 09:49 Seen and examined with the resident. Our history and physical exam reveals a woman who had an iron infusion yesterday and then last night developed swelling of the right side of her tongue which has since resolved. No dyspnea or dysphagia. No rash. No itching. (Prem Driver) <HAILEE LOONEY - Last Filed: 08/04/17 09:38> - Scribe Statement The provider has reviewed the documentation as recorded by the Scribe <Prem Driver - Last Filed: 08/04/17 09:50> - Scribe Statement Amalia Thayer Provider Scribe Attestation: All medical record entries made by the Scribe were at my direction and personally dictated by me. I have reviewed the chart and agree that the record accurately reflects my personal performance of the history, physical exam, medical decision making, and the department course for this patient. I have also personally directed, reviewed, and agree with the discharge instructions and disposition. (Prem Driver) Disposition/Present on Arrival - Present on Arrival History of DVT/PE: No History of Uncontrolled Diabetes: No Urinary Catheter: No History of Decub. Ulcer: No History Surgical Site Infection Following: None <HAILEE LOONEY - Last Filed: 08/04/17 09:38> - Present on Arrival Any Indicators Present on Arrival: No History of DVT/PE: No History of Uncontrolled Diabetes: No Urinary Catheter: No History of Decub. Ulcer: No - Disposition Have Diagnosis and Disposition been Completed?: Yes Disposition Time: 09:50 Patient Plan: Discharge <Prem Driver - Last Filed: 09/26/17 09:50> - Disposition Diagnosis: Allergic reaction Disposition: HOME/ ROUTINE Condition: GOOD Discharge Instructions (ExitCare): Allergies (ED) Additional Instructions: Symptomatic treatment. Follow-up with PMD. Follow up in ER as needed. Referrals: PCP,NO [Primary Care Provider] - Follow up with primary Forms: [employer] (Yakut)
[2017-08-04 10:04] VITALS: BP 126/62; PULSE 74; RESP 18; O2SAT 99
== END 2017-08-04 10:09 | disposition home or self-care (01) ==
LOC: ED 08:22
DX: T78.49XA Other allergy, initial encounter (principal); X58.XXXA Exposure to other specified factors, initial encounter

== ENCOUNTER 2017-11-12 17:08 | Emergency (ER) | payer MEDICARE ==
[2017-11-12 17:08] VITALS: PULSE 92; BMI 42.1
[2017-11-12 17:15] VITALS: BP 149/79; PULSE 71; RESP 17; TEMP 98.6; O2SAT 97
[2017-11-12] MEDS ORDERED: LIDOCAIN/EPI 1-0.001% 10ML INJ SOL IJ ONE (17:30)
--- NOTE | 2017-11-12 17:33 | ED PDOC ---
Arrival/HPI - General Chief Complaint: Lower Extremity Problem/Injury Time Seen by Provider: 11/12/17 17:09 Historian: Patient - History of Present Illness Narrative History of Present Illness (Text): 11/12/17 17:32 Mrs. Zamora is a 67 year old female with a past medical history significant for chronic atrial fibrillation, hypertension and aortic valve replacement s/p 4 years ago presents to emergency department with a chief complaint of left lower leg bleeding wound x 3 hours. Patient stated she scrapped left lower leg with her finger nail, and she started bleeding from her varicose vein. Last tetanus was <5 years as per patient. Denies other complains. Time/Duration: 1-3 hours Context: Home Past Medical History - Provider Review Nursing Documentation Reviewed: Yes - Infectious Disease Hx of Infectious Diseases: None - Tetanus Immunization Tetanus Immunization: Unknown - Cardiac Hx Cardiac Disorders: Yes Hx Hypertension: Yes Hx Pacemaker: No Hx Peripheral Edema: Yes Other/Comment: hx of open heart with valve replacement and repair x2 5 years apart - Pulmonary Hx Respiratory Disorders: No - Neurological Hx Neurological Disorder: No Hx Paralysis: No - HEENT Hx HEENT Disorder: Yes (WEARS RX GLASSES,LEFT EYE SX CATARACT SX) Hx Cataracts: Yes (L EYE SURGERY) - Renal Hx Renal Disorder: No - Endocrine/Metabolic Hx Endocrine Disorders: Yes Hx Diabetes Mellitus Type 2: Yes - Hematological/Oncological Hx Blood Transfusions: No - Integumentary Hx Dermatological Disorder: No (BILATERAL LEG LYMPEDEMA) Other/Comment: multiple skin discolorations ble dry itchy skin to r knee - Musculoskeletal/Rheumatological Hx Musculoskeletal Disorders: Yes (ROTATOR CUFF TEARsx 2003) - Gastrointestinal Hx Gastrointestinal Disorders: No - Genitourinary/Gynecological Hx Genitourinary Disorders: No - Psychiatric Hx Psychophysiologic Disorder: No Hx Emotional Abuse: No Hx Physical Abuse: No Hx Substance Use: No - Surgical History Hx Cardiac Catheterization: Yes Hx Open Heart Surgery: Yes (x2) Hx Valve Replacement: Yes (x2) - Anesthesia Hx Anesthesia: Yes Hx Anesthesia Reactions: No Hx Malignant Hyperthermia: No - Suicidal Assessment Feels Threatened In Home Enviroment: No Family/Social History - Physician Review Nursing Documentation Reviewed: Yes Family/Social History: Other (noncontributory) Smoking Status: Former Smoker Hx Alcohol Use: No Hx Substance Use: No Hx Substance Use Treatment: No Allergies/Home Meds Allergies/Adverse Reactions: Allergies No Known Allergies Allergy (Verified 11/12/17 17:10) Home Medications: Home Meds Medication Instructions Recorded Confirmed Furosemide [Lasix] 40 mg PO DAILY 07/21/13 11/12/17 Warfarin [Coumadin] 6 mg PO DAILY 07/21/13 11/12/17 [id number] CD [Cardizem CD] 300 mg PO DAILY 07/21/13 11/12/17 Clonazepam [Klonopin] 0.5 mg PO PRN PRN 04/03/16 11/12/17 MetFORMIN [glucoPHAGE] 1,000 mg PO BID 04/03/16 11/12/17 Pravastatin Sodium 20 mg PO DAILY 04/03/16 11/12/17 Pantoprazole Sodium [Protonix] 40 mg PO DAILY 03/27/17 11/12/17 Potassium Chloride [K-Dur 20 mEq 20 meq PO DAILY 03/27/17 11/12/17 ER Tab] Aspirin [Ecotrin] 81 mg PO DAILY 05/01/17 11/12/17 Magnesium [Magnesium] 0 mg PO DAILY 08/04/17 11/12/17 Metoprolol Tartrate [Lopressor] 0 mg PO DAILY 08/04/17 11/12/17 Digoxin [Lanoxin Elixir Soln] 0 mg PO DAILY 11/12/17 11/12/17 Review of Systems - Review of Systems Constitutional: Normal. absent: Fatigue, Weight Change, Fevers Eyes: Normal ENT: Normal Respiratory: Normal Cardiovascular: Normal Gastrointestinal: Normal Genitourinary Female: Normal Musculoskeletal: Other ((+) left lower leg bleeding wound) Skin: Normal Neurological: Normal Endocrine: Normal Hemo/Lymphatic: Normal Psychiatric: Normal Physical Exam Vital Signs Temp Pulse Resp BP Pulse Ox 11/12/17 17:12 98.6 F 71 17 149/79 97 Temperature: Afebrile Blood Pressure: Normal Pulse: Regular Respiratory Rate: Normal Appearance: Positive for: Well-Appearing, Non-Toxic, Comfortable Pain Distress: None Mental Status: Positive for: Alert and Oriented X 3 - Systems Exam Head: Present: Atraumatic, Normocephalic Pupils: Present: PERRL Extroacular Muscles: Present: EOMI Conjunctiva: Present: Normal Mouth: Present: Moist Mucous Membranes Back: Present: Normal Inspection Upper Extremity: Present: Normal Inspection, Normal ROM. No: Cyanosis, Edema Lower Extremity: Present: Normal Inspection, El's Sign, Neurovascularly Intact, Capillary Refill < 2 s, Other ((+) pin point size bleeding wound, "oozing"). No: Edema, CALF TENDERNESS Neurological: Present: GCS=15, CN II-XII Intact, Speech Normal Skin: Present: Warm, Dry, Normal Color. No: Rashes Psychiatric: Present: Alert, Oriented x 3, Normal Insight, Normal Concentration Medical Decision Making ED Course and Treatment: 11/12/17 17:59 2 vertical mattress sutures were paced to control bleeding. 11/12/17 18:41 I recommended patient to f/u Dr. Bourne office tomorrow, to call office first. She understood to stop Coumadin for one day, and to ask Dr. Bourne if she needs to skip Coumadin for another day or not. To return to emergency if bleeding restart. She understood that suture needs to be removed in 5 days, and better control of INR. 11/12/17 19:[address] Bourne regarding INR at 3.5. She recommended to stop Coumadin tonight only, and to restart Coumadin tomorrow night. She stated to have patient call her at anytime for any questions or complains. 11/12/17 19:19 Patient understood plan Re-evaluation Time: 18:43 Reassessment Condition: Re-examined, Improved - Lab Interpretations Lab Results: Lab Results 11/12/17 17:43: PT 41.2 H, INR 3.52 H*, APTT 35.6 I have reviewed the lab results: Yes Interpretation: Abnormal lab values (INR 3.5) - Procedure PROCEDURE NOTE (Text): 11/12/17 18:20 t Disposition/Present on Arrival - Present on Arrival Any Indicators Present on Arrival: No History of DVT/PE: No History of Uncontrolled Diabetes: No Urinary Catheter: No History of Decub. Ulcer: No History Surgical Site Infection Following: None - Disposition Have Diagnosis and Disposition been Completed?: Yes Diagnosis: Bleeding from varicose veins of left lower extremity Disposition: HOME/ ROUTINE Disposition Time: 19:19 Patient Plan: Discharge Condition: IMPROVED Discharge Instructions (ExitCare): Varicose Veins (ED), Elevated INR (ED) Additional Instructions: Call Dr. Bourne office tomorrow for revaluation. Skip Coumadin tonight. restart Coumadin tomorrow night. Return to emergency if bleeding return from wound. Sutures needs to be removed in 5 days from today. Clean wound daily with soap and water. Return to emergency for any sign of infection on the leg Referrals: Britton Bourne MD [Primary Care Provider] - Follow up with primary Forms: [employer] (German)
[2017-11-12 18:14] LABS: PROTHROMBIN TIME 41.2 SECONDS (9.4-12.5)
[2017-11-12 18:17] LABS: INR 3.52 (0.93-1.08); PARTIAL THROMBOPLASTIN TIME 35.6 Seconds (25.1-36.5)
== END 2017-11-12 20:00 | disposition home or self-care (01) ==
LOC: ED 17:08
DX: I83.892 Varicose veins of left lower extremity with other complications (principal); I10 Essential (primary) hypertension; I48.91 Unspecified atrial fibrillation; Z87.891 Personal history of nicotine dependence

== ENCOUNTER 2017-12-11 04:54 | Observation (INO) | payer MEDICARE, OTHER ==
[2017-12-11 05:10] VITALS: BMI 39.9
[2017-12-11] MEDS ORDERED: Sodium Chloride 0.9% 1,000 ML IV STA (05:12)
--- NOTE | 2017-12-11 05:21 | ED PDOC ---
Arrival/HPI - General Chief Complaint: Allergic Reaction Time Seen by Provider: 12/11/17 04:57 Historian: Patient - History of Present Illness Narrative History of Present Illness (Text): 12/11/17 05:18 A 67 year old female, whose past medical history includes chronic atrial fibrillation, hypertension, and aortic valve replacement, presents to the emergency department complaining of left- sided facial and tongue swelling. The patient states that this is the fourth time she has been in the emergency department for her current symptoms. She states that she notice some swelling present prior to going to bed, but woke up after her mouth felt dry and noticed that her face was more swollen. The patient is unsure about what is causing her allergic reaction. The patient denies fevers, chills, headache, dizziness, chest pain, shortness of breath, dyspnea on exertion, cough, abdominal pain, nausea, vomiting, diarrhea, back pain, neck pain, urinary/bowel changes, difficulty breathing, swallowing, or any other complaint. PMD: Dr. Bourne Time/Duration: Prior to Arrival Symptom Onset: Sudden Symptom Course: Unchanged Activities at Onset: Rest, Light Context: Home Past Medical History - Provider Review Nursing Documentation Reviewed: Yes - Infectious Disease Hx of Infectious Diseases: None - Tetanus Immunization Tetanus Immunization: Unknown - Reproductive Menopause: Yes - Cardiac Hx Cardiac Disorders: Yes Hx Hypertension: Yes Hx Pacemaker: No Hx Peripheral Edema: Yes Other/Comment: hx of open heart with valve replacement and repair x2 5 years apart - Pulmonary Hx Respiratory Disorders: No - Neurological Hx Neurological Disorder: No Hx Paralysis: No - HEENT Hx HEENT Disorder: Yes (WEARS RX GLASSES,LEFT EYE SX CATARACT SX) Hx Cataracts: Yes (L EYE SURGERY) - Renal Hx Renal Disorder: No - Endocrine/Metabolic Hx Endocrine Disorders: Yes Hx Diabetes Mellitus Type 2: Yes - Hematological/Oncological Hx Blood Disorders: No Hx Blood Transfusions: No - Integumentary Hx Dermatological Disorder: No (BILATERAL LEG LYMPEDEMA) Other/Comment: multiple skin discolorations ble dry itchy skin to r knee - Musculoskeletal/Rheumatological Hx Musculoskeletal Disorders: Yes (ROTATOR CUFF TEARsx 2003) - Gastrointestinal Hx Gastrointestinal Disorders: No - Genitourinary/Gynecological Hx Genitourinary Disorders: No - Psychiatric Hx Psychophysiologic Disorder: No Hx Emotional Abuse: No Hx Physical Abuse: No Hx Substance Use: No - Surgical History Hx Cardiac Catheterization: Yes (valves 7/17) Hx Open Heart Surgery: Yes (x2) Hx Valve Replacement: Yes (x2) - Anesthesia Hx Anesthesia: Yes Hx Anesthesia Reactions: No Hx Malignant Hyperthermia: No - Suicidal Assessment Feels Threatened In Home Enviroment: No Family/Social History - Physician Review Nursing Documentation Reviewed: Yes Family/Social History: No Known Family HX Smoking Status: Former Smoker Hx Alcohol Use: No Hx Substance Use: No Hx Substance Use Treatment: No Allergies/Home Meds Allergies/Adverse Reactions: Allergies No Known Allergies Allergy (Unverified 12/11/17 05:11) Home Medications: Home Meds Medication Instructions Recorded Confirmed Furosemide [Lasix] 40 mg PO DAILY 07/21/13 12/11/17 Warfarin [Coumadin] 6 mg PO DAILY 07/21/13 12/11/17 [id number] CD [Cardizem CD] 300 mg PO DAILY 07/21/13 12/11/17 Clonazepam [Klonopin] 0.5 mg PO PRN PRN 04/03/16 12/11/17 MetFORMIN [glucoPHAGE] 1,000 mg PO BID 04/03/16 12/11/17 Pravastatin Sodium 20 mg PO DAILY 04/03/16 12/11/17 Pantoprazole Sodium [Protonix] 40 mg PO DAILY 03/27/17 12/11/17 Potassium Chloride [K-Dur 20 mEq 20 meq PO DAILY 03/27/17 12/11/17 ER Tab] Aspirin [Ecotrin] 81 mg PO DAILY 05/01/17 12/11/17 Magnesium [Magnesium] 0 mg PO DAILY 08/04/17 12/11/17 Metoprolol Tartrate [Lopressor] 0 mg PO DAILY 08/04/17 12/11/17 Digoxin [Lanoxin Elixir Soln] 0 mg PO DAILY 11/12/17 12/11/17 Review of Systems - Physician Review All systems were reviewed & negative as marked: Yes - Review of Systems Constitutional: Other (Left- sided facial swelling.). absent: Fevers, Night Sweats ENT: Other (Left sided- tongue swelling ) Respiratory: absent: SOB Cardiovascular: absent: Chest Pain, RM Gastrointestinal: absent: Abdominal Pain, Stool Changes, Diarrhea, Nausea, Vomiting Genitourinary Female: absent: Urine Output Changes Musculoskeletal: absent: Back Pain, Neck Pain Neurological: absent: Headache, Dizziness Physical Exam Vital Signs Reviewed: Yes Vital Signs Temp Pulse Resp BP Pulse Ox 12/11/17 08:26 97.7 F 78 18 159/87 H 95 12/11/17 05:06 99.0 F 75 18 131/60 95 Temperature: Afebrile Blood Pressure: Normal Pulse: Regular Respiratory Rate: Normal Appearance: Positive for: Well-Appearing, Non-Toxic, Comfortable Pain Distress: None Mental Status: Positive for: Alert and Oriented X 3 - Systems Exam Head: Present: Atraumatic, Swelling (Left- sided facial swelling. ) Pupils: Present: PERRL Extroacular Muscles: Present: EOMI Conjunctiva: Present: Normal Mouth: Present: Moist Mucous Membranes. No: Normal Tounge (Left sided tounge swelling. ) Neck: Present: Normal Range of Motion Respiratory/Chest: Present: Clear to Auscultation, Good Air Exchange. No: Respiratory Distress, Accessory Muscle Use Cardiovascular: Present: Regular Rate and Rhythm, Normal S1, S2. No: Murmurs Abdomen: Present: Normal Bowel Sounds. No: Tenderness, Distention, Peritoneal Signs Back: Present: Normal Inspection Upper Extremity: Present: Normal Inspection. No: Cyanosis, Edema Lower Extremity: Present: Normal Inspection. No: Edema Neurological: Present: GCS=15, CN II-XII Intact, Speech Normal Skin: Present: Warm, Dry, Normal Color. No: Rashes Psychiatric: Present: Alert, Oriented x 3, Normal Insight, Normal Concentration Medical Decision Making ED Course and Treatment: 12/11/17 05:23 Impression: A 67 year old female presents to the emergency department complaining of an allergic reaction, causing left sided facial and tongue swelling. Plan: -- Labs -- Pepcid, SOLU-Medrol and IV Fluids -- Reassess and disposition Progress Notes: - Lab Interpretations Lab Results: 12/11/17 05:28 12/11/17 05:28 Lab Results 12/11/17 05:28: Sodium 138, Potassium 4.1, Chloride 95 L, Carbon Dioxide 29, Anion Gap 19, BUN 39 H, Creatinine 1.3 H, Est GFR ( Amer) 49, Est GFR ( Non-Af Amer) 41, Random Glucose 171 H, Calcium 10.0, Total Bilirubin 0.5, AST 33 , ALT 29, Alkaline Phosphatase 91, Total Protein 8.4 H, Albumin 4.2, Globulin 4.2, Albumin/Globulin Ratio 1.0 L 12/11/17 05:28: WBC 8.1 D, RBC 3.15 L, Hgb 10.0 L, Hct 31.8 L, MCV 101.0, MCH 31.7, MCHC 31.4, RDW 17.2 H, Plt Count 302, MPV 10.5, Gran % 67.1, Lymph % (Auto ) 23.9, [place] % (Auto) 5.9, Eos % (Auto) 2.5, Baso % (Auto) 0.6, Gran # 5.43, Lymph # (Auto) 1.9, [place] # (Auto) 0.5, Eos # (Auto) 0.2, Baso # (Auto) 0.05 I have reviewed the lab results: Yes - Medication Orders Current Medication Orders: Discontinued Medications Aspirin (Ecotrin) 81 mg PO DAILY COUNTS INCLUDE 234 BEDS AT THE [facility] Last Admin: 12/12/17 10:11 Dose: 81 mg Clonazepam (Klonopin) 0.5 mg PO BID PRN; Protocol PRN Reason: Anxiety Last Admin: 12/12/17 04:46 Dose: 0.5 mg Behavioural Document 12/12/17 04:46 LVC (Rec: 12/12/17 04:47 [id number] Maintenance Maintenance Dose No Nonmedicinal Nonmedicinal Interventions Redirect Therapeutic Communication Behavior Behavior for Medication: Anxiety Digoxin (Lanoxin Elixir Soln) 0.125 mg PO DAILY COUNTS INCLUDE 234 BEDS AT THE [facility] Digoxin (Lanoxin) 0.125 mg PO DAILY COUNTS INCLUDE 234 BEDS AT THE [facility] Last Admin: 12/12/17 10:13 Dose: 0.125 mg MAR Apical Pulse Rate Document 12/12/17 10:13 BIR (Rec: 12/12/17 10:13 [id number]) Apical Pulse Rate Apical Pulse Rate (60-90 beats/min) 85 Diltiazem HCl (Cardizem Cd) 300 mg PO DAILY COUNTS INCLUDE 234 BEDS AT THE [facility] Last Admin: 12/12/17 10:11 Dose: 300 mg MAR Pulse and Blood Pressure Document 12/12/17 10:11 BIR (Rec: 12/12/17 10:11 [id number]) Pulse Pulse Rate (60-90) 85 Blood Pressure Blood Pressure (100/60-150/90) 127/70 Diphenhydramine HCl (Benadryl) 50 mg IVP STAT STA Stop: 12/11/17 06:35 Last Admin: 12/11/17 07:15 Dose: 50 mg IVP Administration Document 12/11/17 07:15 KELL (Rec: 12/11/17 07:15 KELL [id number]) Charges for Administration # of IVP Administrations 1 Famotidine (Pepcid) 40 mg IVP STAT STA Stop: 12/11/17 05:13 Last Admin: 12/11/17 05:25 Dose: 40 mg IVP Administration Document 12/11/17 05:25 KELL (Rec: 12/11/17 05:25 KELL [id number]) Charges for Administration # of IVP Administrations 1 Famotidine (Pepcid) 20 mg PO STAT STA Stop: 12/11/17 06:35 Last Admin: 12/11/17 07:14 Dose: 20 mg Furosemide (Lasix) 40 mg PO DAILY IVY Last Admin: 12/12/17 10:13 Dose: 40 mg MAR Blood Pressure Document 12/12/17 10:13 BIR (Rec: 12/12/17 10:13 BIR [id number]) Blood Pressure Blood Pressure (100/60-150/90) 127/70 Sodium Chloride (Sodium Chloride 0.9%) 1,000 mls @ 999 mls/hr IV .Q1H1M STA Stop: 12/11/17 06:12 Last Admin: 12/11/17 05:26 Dose: 999 mls/hr eMAR Start Stop Document 12/11/17 05:26 KELL (Rec: 12/11/17 05:26 KELL [id number]) Intravenous Solution Start Date 12/11/17 Start Time 05:26 End Date 12/11/17 End time 06:26 Total Infusion Time 60 Loratadine (Claritin) 10 mg PO DAILY IVY Last Admin: 12/12/17 10:11 Dose: 10 mg Metformin HCl (Glucophage) 1,000 mg PO BID IVY Last Admin: 12/12/17 10:12 Dose: 1,000 mg Methylprednisolone (Solu-Medrol) 125 mg IVP STAT STA Stop: 12/11/17 05:13 Last Admin: 12/11/17 05:24 Dose: 125 mg IVP Administration Document 12/11/17 05:24 KELL (Rec: 12/11/17 05:25 KELL [id number]) Charges for Administration # of IVP Administrations 1 Metoprolol Tartrate (Lopressor) 12.5 mg PO DAILY COUNTS INCLUDE 234 BEDS AT THE [facility] Last Admin: 12/12/17 10:13 Dose: 12.5 mg MAR Pulse and Blood Pressure Document 12/12/17 10:13 BIR (Rec: 12/12/17 10:14 BIR [id number]) Pulse Pulse Rate (60-90) 85 Blood Pressure Blood Pressure (100/60-150/90) 127/70 Potassium Chloride (K-Dur 20 Meq Er Tab) 20 meq PO DAILY IVY Last Admin: 12/12/17 10:12 Dose: 20 meq Warfarin Sodium (Coumadin) 6 mg PO 1800 IVY PRN Reason: Protocol Last Admin: 12/11/17 17:26 Dose: 6 mg - PA / MANAGING MANAGER / Resident Statement MD/DO has reviewed & agrees with the documentation as recorded. - Scribe Statement The provider has reviewed the documentation as recorded by the Felishaibholly Waller Provider Scribe Attestation: All medical record entries made by the Scribe were at my direction and personally dictated by me. I have reviewed the chart and agree that the record accurately reflects my personal performance of the history, physical exam, medical decision making, and the department course for this patient. I have also personally directed, reviewed, and agree with the discharge instructions and disposition. Disposition/Present on Arrival - Present on Arrival Any Indicators Present on Arrival: No History of DVT/PE: No History of Uncontrolled Diabetes: No Urinary Catheter: No History of Decub. Ulcer: No History Surgical Site Infection Following: None - Disposition Have Diagnosis and Disposition been Completed?: Yes Diagnosis: Allergic reaction Disposition: HOSPITALIZED Disposition Time: 07:00 Patient Plan: Admission Condition: STABLE
[2017-12-11 06:01] LABS: BASO # 0.05 K/mm3 (0.0-2.0); BASO % 0.6 % (0.0-3.0); EOS # 0.2 (0.0-0.7); EOS % 2.5 % (1.5-5.0); GRAN # 5.43 (1.4-6.5); GRAN % 67.1 % (50.0-68.0); LYMPH # 1.9 (1.2-3.4); LYMPH % 23.9 % (22.0-35.0); MEAN CORPUSCULAR HEMOGLOBIN 31.7 pg (25.0-35.0); MEAN CORPUSCULAR HGB CONC 31.4 g/dl (31.0-37.0); MEAN PLATELET VOLUME 10.5 fl (7.0-11.0); MONO # 0.5 (0.1-0.6); MONO % 5.9 % (1.0-6.0); RBC 3.15 10^6/uL (3.5-6.1); RED CELL DISTRIBUTION WIDTH 17.2 % (11.5-14.5); WHITE BLOOD COUNT 8.1 10^3/ul (4.5-11.0)
[2017-12-11 06:08] LABS: ALBUMIN 4.2 g/dL (3.0-4.8)
[2017-12-11] MEDS ORDERED: DiphenhydrAMINE 50 mg/ml Inj IVP STA (06:34)
--- NOTE | 2017-12-11 07:28 | ED PDOC ---
Physical Exam Vital Signs Reviewed: Yes Vital Signs Temp Pulse Resp BP Pulse Ox 12/11/17 05:06 99.0 F 75 18 131/60 95 Temperature: Afebrile Blood Pressure: Normal Pulse: Regular Respiratory Rate: Normal Appearance: Positive for: Well-Appearing Pain Distress: None Mental Status: Positive for: Alert and Oriented X 3 - Systems Exam Head: Present: Atraumatic, Normocephalic Pupils: Present: PERRL Extroacular Muscles: Present: EOMI Conjunctiva: Present: Normal Neck: Present: Normal Range of Motion, Trachea Midline. No: MIDLINE TENDERNESS Respiratory/Chest: Present: Clear to Auscultation, Good Air Exchange. No: Wheezes Cardiovascular: Present: Regular Rate and Rhythm, Normal S1, S2 Abdomen: Present: Normal Bowel Sounds, Other (well nourished female, no focal tenderness) Upper Extremity: Present: Normal Inspection, Normal ROM, NORMAL PULSES, Neurovascularly Intact, Capillary Refill < 2s Lower Extremity: Present: Normal Inspection, NORMAL PULSES, Neurovascularly Intact, Other (+ b/l lower extremity edema/swelling noted, no focal tenderness) Neurological: Present: GCS=15, CN II-XII Intact Skin: Present: Warm Psychiatric: Present: Alert Medical Decision Making ED Course and Treatment: 12/11/17 07:11 Patient signed out to me by Dr. Mooney. Patient visits ER complaining of swelling of half her tongue ("allergic reaction" according to patient). Patient was given SOLU-Medrol and Pepcid. SOLU-Medrol was later discontinued and patient was given another dose of Pepcid, and Benadryl as well and H1-willis. Patient's condition has improved, with tongue slightly less swelled than initially. Patient awaiting to be discharged if condition further improves. 12/11/17 07:52 re-eval of patient did not indicate further improvement; pt states she feels like her swelling is the same exam: + left upper half of the lips slightly swollen, + left half of her tongue remains swollen + mild voice changes is noted, NO stridor, no drooling no exudate/lesions noted uvula/tongue are midline LUNG exam: CTA b/l, no w/r/r, no accessory muscle use noted, no tachypenia given pt's continued repetitive/intermittent swellings/possible allergic reactions (r/o angioedema) with pt's multiple co-morbidities, recommending patient for admission/observation pt agrees Spoke to Dr Bourne, made aware, agrees with ED mgt/txt, agrees with admission/ observation; would like ENT consulted, and states to hold off on EPI at the moment given patient's extensive cardiac dz hx, unless patient exhibits further anaphylaxis will continue to monitor Re-evaluation Time: 07:52 Reassessment Condition: Unchanged - Lab Interpretations Lab Results: 12/11/17 05:28 12/11/17 05:28 Lab Results 12/11/17 05:28: Sodium 138, Potassium 4.1, Chloride 95 L, Carbon Dioxide 29, Anion Gap 19, BUN 39 H, Creatinine 1.3 H, Est GFR ( Amer) 49, Est GFR ( Non-Af Amer) 41, Random Glucose 171 H, Calcium 10.0, Total Bilirubin 0.5, AST 33 , ALT 29, Alkaline Phosphatase 91, Total Protein 8.4 H, Albumin 4.2, Globulin 4.2, Albumin/Globulin Ratio 1.0 L 12/11/17 05:28: WBC 8.1 D, RBC 3.15 L, Hgb 10.0 L, Hct 31.8 L, MCV 101.0, MCH 31.7, MCHC 31.4, RDW 17.2 H, Plt Count 302, MPV 10.5, Gran % 67.1, Lymph % (Auto ) 23.9, [place] % (Auto) 5.9, Eos % (Auto) 2.5, Baso % (Auto) 0.6, Gran # 5.43, Lymph # (Auto) 1.9, [place] # (Auto) 0.5, Eos # (Auto) 0.2, Baso # (Auto) 0.05 I have reviewed the lab results: Yes Interpretation: Abnormal lab values (mild anemia, elevated bun/creat) - Medication Orders Current Medication Orders: Discontinued Medications Diphenhydramine HCl (Benadryl) 50 mg IVP STAT STA Stop: 12/11/17 06:35 Last Admin: 12/11/17 07:15 Dose: 50 mg IVP Administration Document 12/11/17 07:15 KELL (Rec: 12/11/17 07:15 KELL [id number]) Charges for Administration # of IVP Administrations 1 Famotidine (Pepcid) 40 mg IVP STAT STA Stop: 12/11/17 05:13 Last Admin: 12/11/17 05:25 Dose: 40 mg IVP Administration Document 12/11/17 05:25 KELL (Rec: 12/11/17 05:25 KELL [id number]) Charges for Administration # of IVP Administrations 1 Famotidine (Pepcid) 20 mg PO STAT STA Stop: 12/11/17 06:35 Last Admin: 12/11/17 07:14 Dose: 20 mg Sodium Chloride (Sodium Chloride 0.9%) 1,000 mls @ 999 mls/hr IV .Q1H1M STA Stop: 12/11/17 06:12 Last Admin: 12/11/17 05:26 Dose: 999 mls/hr eMAR Start Stop Document 12/11/17 05:26 KELL (Rec: 12/11/17 05:26 KELL [id number]) Intravenous Solution Start Date 12/11/17 Start Time 05:26 End Date 12/11/17 End time 06:26 Total Infusion Time 60 Methylprednisolone (Solu-Medrol) 125 mg IVP STAT STA Stop: 12/11/17 05:13 Last Admin: 12/11/17 05:24 Dose: 125 mg IVP Administration Document 12/11/17 05:24 KELL (Rec: 12/11/17 05:25 KELL [id number]) Charges for Administration # of IVP Administrations 1 - Scribe Statement The provider has reviewed the documentation as recorded by the Rodolfo Browning Provider Scribe Attestation: All medical record entries made by the Rodolfo were at my direction and personally dictated by me. I have reviewed the chart and agree that the record accurately reflects my personal performance of the history, physical exam, medical decision making, and the department course for this patient. I have also personally directed, reviewed, and agree with the discharge instructions and disposition. Disposition/Present on Arrival - Present on Arrival Any Indicators Present on Arrival: No History of DVT/PE: No History of Uncontrolled Diabetes: No Urinary Catheter: No History of Decub. Ulcer: No History Surgical Site Infection Following: None - Disposition Have Diagnosis and Disposition been Completed?: Yes Diagnosis: Allergic reaction Disposition: HOSPITALIZED Disposition Time: 07:52 Patient Plan: Observation Patient Problems: Current Active Problems Problem Status Onset Allergic reaction Acute Condition: STABLE Referrals: Britton Bourne MD [Primary Care Provider] - Follow up with primary Forms: [email or web address] (Lao)
[2017-12-11] MEDS ORDERED: Digoxin 0.05 mg/mL Elixir 5mL PO SCH (10:45)
[2017-12-11] MEDS ORDERED: Digoxin 125 mcg (0.125 mg) Tab PO SCH (10:47)
[2017-12-11] MEDS: diltiaZEM 300 mg/24 Hours CD Cap PO SCH (12:16)
[2017-12-11] MEDS: Potassium Chloride 20 mEq ER Tab PO SCH (12:18)
--- NOTE | 2017-12-11 16:09 | CARD ---
APPROVED REPORT EKG Measurement Heart [id number] <Conclusion> Atrial fibrillation Left axis deviation Left bundle branch block Abnormal ECG
[2017-12-11 18:53] VITALS: RESP 20
--- NOTE | 2017-12-11 23:23 | HP ---
HISTORY OF PRESENT ILLNESS: The patient is 67 years old, known to me from recent office visit. The patient states she ate sushi last night. Since then, she felt her left side of the tongue is swollen. She had some difficulty swallowing. Denies any chest pain. No shortness of breath. No difficulty swallowing right now. The patient was given IV Solu-Medrol and antihistamine with some relief and is placed on observation to see further progression. The patient was recently diagnosed with anemia. For that reason, she needed IV iron. When she was given by Dr. Cyr, she noticed tongue swelling, so she was referred to chief science officer, who did allergy test and was inconclusive and was told that she is not allergic to iron. However, because of tongue swelling and some discomfort, she came to ER for further evaluation. Denies any fever or chills. No nausea or vomiting. No diarrhea. PAST MEDICAL HISTORY: Significant for 1. Aortic stenosis and had prostatic aortic valve replaced. 2. History of mitral valve repair. 3. Chronic atrial fibrillation. 4. Sku-svrnecy-cvaazjmel diabetes. 5. Bilateral chronic stasis dermatitis. 6. Chronic iron deficiency anemia. 7. Hypertension. 8. Hyperlipidemia. 9. Congestive heart failure. ALLERGIES: SHE IS NOT ALLERGIC TO ANY MEDICATIONS. MEDICATIONS AT HOME: The patient is on diltiazem 300 mg daily, 6 mg daily, pravastatin 20 mg daily, potassium 20 mEq daily, Protonix 40 daily, metoprolol 25 b.i.d., metformin 1000 b.i.d., magnesium 400 daily, Lasix 40 mg daily, digoxin 0.125 daily, Klonopin 0.5 twice a day, aspirin 81 daily. SOCIAL HISTORY: The patient is single, lives by herself, used to be a heavy smoker. Socially, she used to drink. PHYSICAL EXAMINATION: GENERAL: The patient is awake, alert, oriented, able to communicate. There is no obvious tongue swelling right now. Her voice is stable. There is no hoarseness noted. No submandibular gland enlargement. No runny or stuffy nose. VITAL SIGNS: She is afebrile, pulse 78, respirations 18, blood pressure 169/87. LUNGS: Bilateral good airflow. No rhonchi or crackle. HEART: S1 and S2 audible. ABDOMEN: Soft, nontender. No rebound, no guarding. NEUROLOGIC: She is awake, alert, and oriented, able to communicate. LABORATORY DATA: WBC is 8.1, hemoglobin 10, hematocrit 31, platelets of 302. Chemistry: Sodium 138, potassium 4.1, chloride 95, CO2 of 29, BUN 39, creatinine 1.3, blood sugar of 171. ASSESSMENT: 1. Tongue swelling, probably subjective feeling, could be allergic reaction to sushi that she ate last night. 2. Chronic atrial fibrillation. 3. Status post aortic valve replacement and mitral valve repair. 4. Rho-mcicmmh-rotqdmmqd diabetes. 5. Chronic bilateral stasis dermatitis. 6. Chronic anemia. PLAN: We will continue the patient on current medications. I will add Claritin. Awaiting ENT evaluation. Once the patient is evaluated by ENT, will be discharged home later today. Britton Bourne MD
--- NOTE | 2017-12-12 00:40 | CON ---
DATE: 12/11/2017 OTOLARYNGOLOGY CONSULTATION REASON FOR CONSULTATION: Angioedema. CONSULTING PHYSICIAN: . HISTORY OF PRESENT ILLNESS: This is a 67-year-old female with past medical history including chronic atrial fibrillation, history of aortic valve replacement, CHF, hypertension, and diabetes, who came to the emergency room this morning complaining of left-sided facial and tongue swelling. The patient states that she woke up in the middle of the night and felt some tongue swelling and went to the mirror and saw that left side of her face was puffy. The patient states that she has had symptoms like this in the past where she has come in to the emergency room. The patient sees a talent acquisition sourcer and has had allergy skin testing revealing that she is allergic to certain fragrances, but she is unaware of which ingredients she is actually allergic to. The patient states she has been unable to keep track of ingredients in fragrances and make-up that she uses and states that she is not completely clear as to what she should be avoiding. This morning when her symptoms began, she did not have any difficulty in breathing, no stridor, no changes in her voice, although she states it is difficult to talk because of her tongue swelling. The patient states that these symptoms make her anxious. She states that her swelling is rapid in onset and goes away very quickly. She otherwise denies any fever, neck pain, difficulty in eating, swallowing, shortness of breath, noisy breathing, chest pain or back pain. PAST MEDICAL HISTORY: As above. PAST SURGICAL HISTORY: No previous surgeries of the head or neck. SOCIAL HISTORY: The patient is a nonsmoker. No alcohol. No illicits. MEDICATIONS: The patient did not take gavino inhibitors or ARB. ALLERGIES: NO KNOWN ALLERGIES TO MEDICATIONS. REVIEW OF SYSTEMS: Twelve-point review of system is negative except as stated in the HPI. PHYSICAL EXAMINATION: GENERAL: Alert and oriented, in no acute distress, comfortable. Voice phonating clearly. Speech is fluent, non-dysarthria. VITAL SIGNS: Temperature is 97.7, pulse 78, blood pressure 169/87, respirations 18, and SpO2 of 95% on room air. EYES: Extraocular muscles are grossly intact. No visual changes. EARS: Auricles appear symmetric. No masses, no lesion. NOSE: Nares patent bilaterally. No discharge, no crusting. MOUTH: Mucous membranes are moist. Tongue is non-edematous. Floor of mouth is non-edematous. The posterior oropharynx is easily visualized. The uvula is midline. Tonsils are 2+. NECK: Supple, nontender. No palpable lymphadenopathy. No palpable thyroid. RADIOLOGY: No imaging to be reviewed. LABORATORY DATA: WBC 8.1, hemoglobin 10.0, and platelets 302. BUN 39 and creatinine 1.3. MEDICATIONS: Aspirin, clonazepam, digoxin, diltiazem, furosemide, loratadine, metformin, metoprolol, and warfarin. ASSESSMENT AND PLAN: This is a 67-year-old female with recurrent episodes of facial and tongue swelling. 1. The patient treated in the ED with steroids, Benadryl and Pepcid and subsequently resolved. 2. The patient states that she has seen an child care leader, but is unclear as to what exactly she is allergic to. 3. The patient should be watched on continuous pulse ox for a total of 8 hours in the hospital. 4. If the patient is stable, the patient may be discharged on Medrol Dosepak as well as continuation of Benadryl and Pepcid for one week. 5. The patient should follow up with her child care leader and should be clearly consulted on what she should avoid. 6. The patient is welcome to follow up in office with us as needed. 7. The patient should avoid any GAVINO inhibitor or angiotensin receptor willis. 8. The patient may be discharged after observation. Thank you for the consultation. Gigi Huddleston DO
[2017-12-12] MEDS: diltiaZEM 300 mg/24 Hours CD Cap PO SCH (10:11)
[2017-12-12] MEDS: Potassium Chloride 20 mEq ER Tab PO SCH (10:12)
[2017-12-12 10:21] VITALS: BP 127/70; PULSE 85
[2017-12-12 10:43] VITALS: TEMP 97.6; O2SAT 97
--- NOTE | 2017-12-13 11:45 | DS ---
HISTORY OF PRESENT ILLNESS: The patient is 67 years old, seen and examined, doing well, no more tongue swelling. No nausea or vomiting. No diarrhea. No chest pain. No shortness of breath. Was seen by ENT, given one week of steroid and Benadryl to take. PHYSICAL EXAMINATION: GENERAL: She is awake, alert, oriented, and communicative. VITAL SIGNS: She is afebrile. Pulse 85, respirations 20, blood pressure 127/70. LUNGS: Bilateral fair airflow. No rhonchi or crackles. HEART: S1 and S2 audible. ABDOMEN: Soft and nontender. No rebound. No guarding. NEUROLOGIC: Patient is awake, alert, oriented, able to communicate. LABORATORY DATA: WBC is 8.1, hemoglobin 10, hematocrit 31, platelets 302,000. ASSESSMENT AND PLAN: 1. Questionable allergic reaction with tongue swelling, questionable edema. 2. Hypertension. 3. Hyperlipidemia. 4. Status post aortic valve replacement. 5. Status post mitral valve repair. 6. Chronic atrial fibrillation. 7. Chronic bilateral leg stasis dermatitis. PLAN: Patient evaluated by ENT. Questionable allergic reaction to the sushi she ate the previous night, so she has been given prednisone 20 mg twice a day for a week and she will continue on Benadryl. She will follow up with ENT as an outpatient. She will follow up with Dr. Cyr on Thursday. . Britton Bourne MD
== END 2017-12-12 12:15 | disposition home or self-care (01) ==
LOC: ED 04:54 → ERH 07:50 → 3RNO 08:53
PROVIDERS: ADMIT Internal Medicine; ATTEND Internal Medicine
DX: T78.3XXA Angioneurotic edema, initial encounter (principal); E11.9 Type 2 diabetes mellitus without complications; E78.5 Hyperlipidemia, unspecified; I11.0 Hypertensive heart disease with heart failure; I35.0 Nonrheumatic aortic (valve) stenosis; I48.2 Chronic atrial fibrillation; I50.9 Heart failure, unspecified; I87.2 Venous insufficiency (chronic) (peripheral); R13.10 Dysphagia, unspecified; Z79.01 Long term (current) use of anticoagulants; Z79.82 Long term (current) use of aspirin; Z79.84 Long term (current) use of oral hypoglycemic drugs; Z79.899 Other long term (current) drug therapy; Z87.891 Personal history of nicotine dependence; Z95.2 Presence of prosthetic heart valve; Z98.42 Cataract extraction status, left eye; R40.2412 Glasgow coma scale score 13-15, at arrival to emergency department; D50.9 Iron deficiency anemia, unspecified
CPT/HCPCS: 80053; 85025; 93005; 96361; 96374; 96375; 99285; G0378; J1200; J2930; J7040

== ENCOUNTER 2018-03-30 21:00 | Emergency (ER) | payer MEDICARE ==
[2018-03-30 21:00] VITALS: PULSE 85; BMI 38.7
[2018-03-30 21:24] VITALS: TEMP 98.3
[2018-03-30] MEDS ORDERED: Sodium Chloride 0.9% 1,000 ML IV STA (21:44)
--- NOTE | 2018-03-30 21:44 | ED PDOC ---
Arrival/HPI - General Chief Complaint: Allergic Reaction Time Seen by Provider: 03/30/18 21:31 Historian: Patient - History of Present Illness Narrative History of Present Illness (Text): 03/30/18 21:44 A 67 year old female, whose past medical history includes chronic atrial fibrillation, hypertension, and aortic valve replacement, presents to the emergency department complaining of left tongue swelling. Patient admits she has had multiple visits for same symptom in the past. Patient stated she took Benadryl 50 mg by mouth, prior coming to ED. Patient denies dysphagia, wheezing , skin rash, lip swelling, dizziness, or other complains. Time/Duration: Other (see hpi) Context: Home Past Medical History - Provider Review Nursing Documentation Reviewed: Yes - Infectious Disease Hx of Infectious Diseases: None - Tetanus Immunization Tetanus Immunization: Unknown - Cardiac Hx Cardiac Disorders: Yes Hx Atrial Fibrillation: Yes Hx Hypertension: Yes - Pulmonary Hx Respiratory Disorders: Yes Hx Chronic Obstructive Pulmonary Disease (COPD): Yes - Neurological Hx Neurological Disorder: No Hx Paralysis: No - HEENT Hx HEENT Disorder: Yes Hx Cataracts: Yes (L EYE SURGERY) - Renal Hx Renal Disorder: No - Endocrine/Metabolic Hx Endocrine Disorders: Yes Hx Diabetes Mellitus Type 2: Yes - Hematological/Oncological Hx Blood Disorders: No Hx Blood Transfusions: No - Integumentary Hx Dermatological Disorder: No (BILATERAL LEG LYMPEDEMA) Other/Comment: LYMPHEDEMA - Musculoskeletal/Rheumatological Hx Musculoskeletal Disorders: Yes (ROTATOR CUFF TEAR) - Gastrointestinal Hx Gastrointestinal Disorders: No - Genitourinary/Gynecological Hx Genitourinary Disorders: No - Psychiatric Hx Psychophysiologic Disorder: No Hx Emotional Abuse: No Hx Physical Abuse: No Hx Substance Use: No - Surgical History Other/Comment: OPEN HEARTR/T VALVE REPAIR. - Anesthesia Hx Anesthesia: Yes Hx Anesthesia Reactions: No Hx Malignant Hyperthermia: No - Suicidal Assessment Feels Threatened In Home Enviroment: No Family/Social History - Physician Review Nursing Documentation Reviewed: Yes Family/Social History: Other (noncontributory) Smoking Status: Former Smoker Hx Alcohol Use: No Hx Substance Use: No Hx Substance Use Treatment: No Allergies/Home Meds Allergies/Adverse Reactions: Allergies No Known Allergies Allergy (Unverified 03/30/18 21:18) Home Medications: Home Meds Medication Instructions Recorded Confirmed Furosemide [Lasix] 40 mg PO DAILY 07/21/13 02/15/18 Warfarin [Coumadin] 5 mg PO DAILY 07/21/13 02/15/18 [id number] CD [Cardizem CD] 300 mg PO DAILY 07/21/13 02/15/18 Clonazepam [Klonopin] 1 mg PO PRN PRN 04/03/16 02/15/18 MetFORMIN [glucoPHAGE] 1,000 mg PO BID 04/03/16 02/15/18 Pravastatin Sodium 20 mg PO DAILY 04/03/16 02/15/18 Pantoprazole Sodium [Protonix] 40 mg PO DAILY 03/27/17 02/15/18 Potassium Chloride [K-Dur 20 mEq 20 meq PO DAILY 03/27/17 02/15/18 ER Tab] Magnesium [Magnesium] 0 mg PO DAILY 08/04/17 02/15/18 Metoprolol Tartrate [Lopressor] 50 mg PO DAILY 08/04/17 02/15/18 Digoxin [Lanoxin Elixir Soln] 0.25 mg PO DAILY 11/12/17 02/15/18 metOLazone [Zaroxolyn] 5 mg PO DAILY 02/15/18 02/15/18 Review of Systems - Review of Systems Constitutional: Normal. absent: Fatigue, Weight Change, Fevers, Night Sweats Eyes: Normal ENT: Other (left sided tongue swelling). absent: Voice Changes, Sore Throat, Rhinorrhea, Sinus Congestion Respiratory: Normal. absent: SOB, Cough, Sputum, Wheezing Cardiovascular: Normal. absent: Chest Pain, Palpitations Gastrointestinal: Normal. absent: Abdominal Pain, Nausea, Vomiting Genitourinary Female: Normal Musculoskeletal: Normal Skin: Normal. absent: Rash Neurological: Normal. absent: Headache, Dizziness, Focal Weakness, Gait Changes , Speech Changes, Facial Droop, Disequilibrium, Seizure Endocrine: Normal Hemo/Lymphatic: Normal Psychiatric: Normal Physical Exam Vital Signs Temp Pulse Resp BP Pulse Ox 03/31/18 02:15 75 18 139/85 96 03/30/18 23:44 71 16 135/63 93 L 03/30/18 21:18 98.3 F 69 17 171/76 H 95 Temperature: Afebrile Blood Pressure: Hypertensive Pulse: Regular Respiratory Rate: Normal Appearance: Positive for: Well-Appearing, Non-Toxic, Comfortable Pain Distress: None Mental Status: Positive for: Alert and Oriented X 3 - Systems Exam Head: Present: Atraumatic, Normocephalic Pupils: Present: PERRL Extroacular Muscles: Present: EOMI Conjunctiva: Present: Normal Mouth: Present: Moist Mucous Membranes, Normal Lips. No: Drooling, Normal Tounge ((+) mild left sided tongue swelling) Pharnyx: Present: Normal. No: ERYTHEMA, EXUDATE, TONSILS ENLARGED, Peritonsilar Swelling, Uvular Deviation, Muffled/Hoarse Voice, Strider, Soft Palate/Uvular Edema Neck: Present: Normal Range of Motion. No: Meningeal Signs Respiratory/Chest: Present: Clear to Auscultation, Good Air Exchange. No: Respiratory Distress, Accessory Muscle Use, Wheezes, Decreased Breath Sounds, Rales Cardiovascular: Present: Regular Rate and Rhythm, Normal S1, S2. No: Murmurs Abdomen: No: Tenderness, Distention, Peritoneal Signs Back: Present: Normal Inspection Upper Extremity: Present: Normal Inspection. No: Cyanosis, Edema Lower Extremity: Present: Normal Inspection. No: Edema Neurological: Present: GCS=15, CN II-XII Intact, Speech Normal Skin: Present: Warm, Dry, Normal Color. No: Rashes Psychiatric: Present: Alert, Oriented x 3, Normal Insight, Normal Concentration Medical Decision Making ED Course and Treatment: 03/31/18 01:46 Re-evaluation. Patient feels better. Discussed results and plan with patient who expresses understanding. All questions answered and there is agreement with the plan to discharge home with instructions. Patient stable for discharge. Return if symptoms persist or worsen. Patient tolerates PO fluid. Denies dysphagia. Patient stated feeling "a lot" better. Labs are unremarkable. On revaluation, tongue swelling has significantly improved. No obvious tongue swelling appreciated at this time. Patient feels well, and she wishes to be discharge home tomorrow. Patient prefers to see Dr. Bourne as out-patient visit tomorrow morning. Re-evaluation Time: 01:46 Reassessment Condition: Re-examined, Improved - Lab Interpretations Lab Results: 03/30/18 22:15 03/30/18 22:15 Lab Results 03/30/18 22:15: Sodium 135, Potassium 3.8, Chloride 91 L, Carbon Dioxide 31, Anion Gap 17, BUN 28 H, Creatinine 0.8, Est GFR ( Amer) > 60, Est GFR ( Non-Af Amer) > 60, Random Glucose 119 H, Calcium 9.1, Total Bilirubin 0.4, AST 43 H D, ALT 22, Alkaline Phosphatase 86, Total Protein 8.1, Albumin 4.3, Globulin 3.8, Albumin/Globulin Ratio 1.1 03/30/18 22:15: WBC 7.8, RBC 3.30 L, Hgb 10.1 L, Hct 31.0 L, MCV 93.9 D, MCH 30.6, MCHC 32.6, RDW 17.1 H, Plt Count 300, MPV 10.1, Gran % 63.7, Lymph % (Auto ) 25.4, Bates % (Auto) 6.8 H, Eos % (Auto) 3.2, Baso % (Auto) 0.9, Gran # 4.94, Lymph # (Auto) 2.0, Bates # (Auto) 0.5, Eos # (Auto) 0.3, Baso # (Auto) 0.07 - Medication Orders Current Medication Orders: Discontinued Medications Diphenhydramine HCl (Benadryl) 25 mg IVP STAT STA Stop: 03/30/18 21:46 Last Admin: 03/30/18 21:58 Dose: Not Given Non-Admin Reason: Patient Refused Famotidine (Pepcid 20mg/50ml Premix) 20 mg in 50 mls @ 100 mls/hr IVPB STAT STA Stop: 03/30/18 22:14 Last Admin: 03/30/18 22:07 Dose: 100 mls/hr eMAR Start Stop Document 03/30/18 22:07 CNR (Rec: 03/30/18 22:11 CNR [id number]) Intravenous Solution Start Date 03/30/18 Start Time 22:11 End Date 03/30/18 End time 22:41 Total Infusion Time 30 Sodium Chloride (Sodium Chloride 0.9%) 500 mls @ 999 mls/hr IV .Q31M STA Stop: 03/30/18 22:16 Last Admin: 03/30/18 22:11 Dose: 999 mls/hr eMAR Start Stop Document 03/30/18 22:11 CNR (Rec: 03/30/18 22:12 CNR [id number]) Intravenous Solution Start Date 03/30/18 Start Time 22:12 Methylprednisolone (Solu-Medrol) 125 mg IVP STAT STA Stop: 03/30/18 21:45 Last Admin: 03/30/18 22:11 Dose: 125 mg IVP Administration Document 03/30/18 22:11 CNR (Rec: 03/30/18 22:11 CNR [id number]) Charges for Administration # of IVP Administrations 1 Disposition/Present on Arrival - Present on Arrival Any Indicators Present on Arrival: No History of DVT/PE: No History of Uncontrolled Diabetes: No Urinary Catheter: No History of Decub. Ulcer: No History Surgical Site Infection Following: None - Disposition Have Diagnosis and Disposition been Completed?: Yes Diagnosis: Tongue swelling, Allergic reaction Disposition: HOME/ ROUTINE Disposition Time: 01:50 Patient Plan: Discharge Condition: IMPROVED Discharge Instructions (ExitCare): Angioedema (DC) Additional Instructions: Call private doctor for follow up visit in 1-2 days. Take medication as instructed. Return to emergency if tongue swelling returns. Prescriptions: DiphenhydrAMINE [Benadryl] 50 mg PO Q8H PRN #20 cap PRN Reason: Allergy Symptoms Famotidine [Pepcid] 40 mg PO DAILY #10 tablet predniSONE [predniSONE Tab] 40 mg PO DAILY #4 tab Referrals: Britton Bourne MD [Family Provider] - Follow up with primary Forms: [employer] ([place]ian)
[2018-03-30] MEDS ORDERED: DiphenhydrAMINE 50 mg/ml Inj IVP STA (21:45)
[2018-03-30] MEDS ORDERED: Famotidine 20mg/50ml 20 MG/50 ML BAG IVPB STA (21:45)
[2018-03-30] MEDS ORDERED: Sodium Chloride 0.9% 500 ML IV STA (21:46)
[2018-03-30 22:19] LABS: BASO # 0.07 K/mm3 (0.0-2.0); BASO % 0.9 % (0.0-3.0); EOS # 0.3 (0.0-0.7); EOS % 3.2 % (1.5-5.0); GRAN # 4.94 (1.4-6.5); GRAN % 63.7 % (50.0-68.0); HEMOGLOBIN 10.1 g/dL (12.0-16.0); LYMPH % 25.4 % (22.0-35.0); MEAN CELL VOLUME 93.9 fl (80.0-105.0); MEAN CORPUSCULAR HEMOGLOBIN 30.6 pg (25.0-35.0); MEAN CORPUSCULAR HGB CONC 32.6 g/dl (31.0-37.0); MEAN PLATELET VOLUME 10.1 fl (7.0-11.0); MONO # 0.5 (0.1-0.6); MONO % 6.8 % (1.0-6.0); RBC 3.3 10^6/uL (3.5-6.1); RED CELL DISTRIBUTION WIDTH 17.1 % (11.5-14.5); WHITE BLOOD COUNT 7.8 10^3/ul (4.5-11.0)
[2018-03-30 22:29] LABS: ALB/GLOB RATIO 1.1 (1.1-1.8); ALBUMIN 4.3 g/dL (3.0-4.8); ALT/SGPT 22 U/L (7-56); AST/SGOT 43 U/L (14-36); BLOOD UREA NITROGEN 28 mg/dL (7-21); CALCIUM 9.1 mg/dL (8.4-10.5); GFR AFRICAN-AMERICAN > 60; GFR NON-AFRICAN AMERICAN > 60
[2018-03-31 02:16] VITALS: BP 139/85; PULSE 75; RESP 18; O2SAT 96
== END 2018-03-31 02:15 | disposition home or self-care (01) ==
LOC: ED 21:00
DX: R22.0 Localized swelling, mass and lump, head (principal); T78.49XA Other allergy, initial encounter; X58.XXXA Exposure to other specified factors, initial encounter
CPT/HCPCS: 80053; 85025; 96365; 96375; 99283; J2930; J7040